=== PATIENT | female | born 1965 | race Caucasian/White ===

== ENCOUNTER 2019-11-07 13:15 | Emergency (ER) | payer MEDICARE, MEDICAID, SELFPAY ==
[2019-11-07 13:27] VITALS: BP 150/84; PULSE 84; RESP 18; TEMP 36.7; O2SAT 97; BMI 28.3
== END 2019-11-07 15:24 ==
LOC: ER 14:47
PROVIDERS: Emergency Provider Family Medicine; Family Provider Family Medicine; PCP Family Medicine
DX: Z53.21 Procedure and treatment not carried out due to patient leaving prior to being seen by health care provider (principal)
CPT/HCPCS: 99281; A9270

== ENCOUNTER 2020-05-25 13:39 | Outpatient (CLI) | payer MEDICARE, MEDICAID, SELFPAY ==
--- NOTE | 2020-05-25 13:49 | XRR_ITS ---
PROCEDURE INFORMATION: Exam: XR Lumbosacral Spine, 2 or 3 Views Exam date and time: 05/25/2020 2:21 PM Age: 55 years old Clinical indication: Low back pain; Prior surgery; Surgery type: L spine TECHNIQUE: Imaging protocol: XR of the lumbosacral spine, 2 or 3 views. COMPARISON: CT abdomen pelvis w con* [id number] 10/18/2016 3:42 PM FINDINGS: Vertebrae: Minimal curvature of the upper lumbar spine convex to the left. The lumbar vertebral bodies maintain height and sagittal alignment. The facets align normally. No acute fracture. There is multilevel disc degeneration, most prominently at L4-L5 and L5-S1. Soft tissues: No acute soft tissue abnormality. XR/XR lumbar spine 2-3V* [id number] IMPRESSION: Multilevel disc degeneration.
--- NOTE | 2020-05-25 13:49 | XRR_ITS ---
PROCEDURE INFORMATION: Exam: XR Bilateral Hips with Pelvis when Performed Exam date and time: 05/25/2020 2:21 PM Age: 55 years old Clinical indication: Hip pain; Bilateral; Prior surgery; Surgery type: L spine; Additional info: B/l hip pain TECHNIQUE: Imaging protocol: XR bilateral hips with pelvis when performed. Views: 2 views. COMPARISON: CT abdomen pelvis w con* [id number] 10/18/2016 3:42 PM FINDINGS: Bones/joints: No fracture. No dislocation. No hip joint space narrowing. The symphysis pubis is degenerated. The sacroiliac joints appear normal. Soft tissues: No acute soft tissue abnormality. XR/XR hip BI m 5V wo/w pel* [id number] IMPRESSION: No acute osseous abnormality.
== END 2020-05-25 13:40 | disposition home or self-care (01) ==
PROVIDERS: Family Provider Family Medicine; PCP Family Medicine; Visit Provider Family Medicine
DX: M54.5 Low back pain (principal); M25.551 Pain in right hip; M25.552 Pain in left hip; M51.36 Other intervertebral disc degeneration, lumbar region
CPT/HCPCS: 72100; 73523

== ENCOUNTER 2020-12-23 13:23 | Outpatient (CLI) | payer MEDICARE, MEDICAID, SELFPAY ==
--- NOTE | 2020-12-23 13:30 | CT_ITS ---
WS: [id number] CT ABDOMEN AND PELVIS WITH CONTRAST HISTORY: ABDOMINAL PAIN TECHNIQUE: Imaging performed of the abdomen and pelvis with IV contrast. Single phase imaging of the abdomen. Coronal and sagittal reformats are submitted. All CT scans at [facility] use at least one of these dose optimization techniques: automated exposure control; mA and/or kV adjustment per patient size (includes targeted exams where dose is matched to clinical indication); or iterativ e reconstruction. IV CONTRAST: Omnipaque 300; 95 mL IV. Oral contrast: Yes. DLP: 1080.37 mGycm COMPARISON: 10/18/2016 Lower thorax: Lung bases are clear. Heart is normal size. No hiatal hernia. Liver/biliary system: Moderately enlarged liver extends over length of 20 cm. Diffuse hepatic steatos is. No bile duct dilatation or mass. Gallbladder: Status post cholecystectomy. Common bile duct is mildly prominent but similar to 2017. Pancreas: Normal. Spleen: Normal. Adrenal glands: Normal RIGHT adrenal gland. Long-term stability well-circumscribed low-attenuation ma ss in the LEFT adrenal gland measures 2.7 x 2.1 cm. Right kidney: Normal. Left kidney: Nonobstructing calcification in the central pelvis. This is probably a vascular calcific ation. Otherwise negative kidney. Aorta: Mild atherosclerosis with no aneurysm. Lymphadenopathy: None. Free fluid: None. GI tract: Prior appendectomy. No GI tract obstruction. No mucosal thickening. There are a few scatter ed diverticula in the descending and sigmoid colon without diverticulitis. Abdominal wall: Fat-containing umbilical hernia. Pelvis: Prior hysterectomy. Normal urinary bladder. No free fluid or adenopathy. Normal size RIGHT ov kaleigh is identified. Bones: Moderate degenerative disc disease at L4-5. CT/CT abdomen pelvis w con* [id number] IMPRESSION: 1. No acute abdominal or pelvic abnormalities. 2. Prior appendectomy, cholecystectomy and hysterectomy. 3. A few scattered distal colon diverticula without diverticulitis. 4. No evidence for colitis. 5. Moderate hepatomegaly and hepatic steatosis. 6. Long-term stability LEFT adrenal adenoma.
[2020-12-23] MEDS: iohexol 300 mg/mL 50 mL Btl PO (14:12)
[2020-12-23] MEDS: iohexol 300 mg/mL 100 mL Btl IV (14:56)
== END 2020-12-23 13:24 | disposition home or self-care (01) ==
LOC: RADWPI 13:25
PROVIDERS: PCP Physician Assistant; Visit Provider Physician Assistant
DX: R10.9 Unspecified abdominal pain (principal); D35.02 Benign neoplasm of left adrenal gland; Q42.8 Congenital absence, atresia and stenosis of other parts of large intestine; Z90.49 Acquired absence of other specified parts of digestive tract; Z90.710 Acquired absence of both cervix and uterus; K57.30 Diverticulosis of large intestine without perforation or abscess without bleeding; R16.0 Hepatomegaly, not elsewhere classified; K76.0 Fatty (change of) liver, not elsewhere classified
CPT/HCPCS: 74177; Q9967

== ENCOUNTER 2021-08-02 13:13 | Outpatient (CLI) | payer MEDICARE, MEDICAID, SELFPAY ==
--- NOTE | 2021-08-02 13:22 | MR_ITS ---
WS: [id number] MRI LUMBAR SPINE NONCONTRAST HISTORY: LOW BACK PAIN WITH RADIATION COMPARISON: 05/18/2011 TECHNIQUE: Sagittal and axial multisequence imaging is submitted. 7 cervical and 12 thoracic vertebral bodies. There are 5 lumbar type vertebral bodies. S1 is lumbariz ed. This numbering pattern will be important if surgery is ever contemplated in this patient. Mild scoliosis lumbar spine. No acute fractures or marrow edema. Severe degenerative disc disease at L5-S1 with endplate osteophytes Conus terminates normally at L1. L1-L2: Normal. L2-L3: Moderate bilateral ligamentum flavum hypertrophy and facet hypertrophy. No significant stenosi s. L3-L4: Moderate ligamentum flavum and facet hypertrophy. Very slight encroachment into the thecal sac but no significant stenosis. L4-L5: Moderate ligamentum flavum hypertrophy with encroachment centrally into the thecal sac. Very s light subarticular recess narrowing. No significant stenosis. L5-S1: Moderate-sized RIGHT subarticular disc protrusion extends into the lateral recess. This disc d oes displace the nerve root posteriorly. There is mass effect upon the RIGHT lateral thecal sac. Channing tional moderate narrowing of the LEFT subarticular recess. There is encroachment upon the S1 nerve ro ots bilaterally. There is also a prior RIGHT laminectomy defect. Rudimentary S1-S2 disc. There is a central disc protrusion contacting the LEFT S2 nerve root. Liver is enlarged extending over length of 20 cm. MR/MR lumbar spine wo con* [id number] IMPRESSION: 1. Consular Officer survey of the entire spine demonstrates 7 cervical, 12 thoracic and 6 lumbar type vertebral bodies. The 6 lumbar type vertebral body will be describ ed as a lumbarized S1 segment. This numbering pattern will be important if surg elinor is contemplated in this patient. 2. Moderate-sized RIGHT subarticular disc protrusion at L5-S1 contacting the t hecal sac and displacing the RIGHT S1 nerve root. 3. Additional bilateral subarticular recess stenosis at L5-S1 contacting the n erve roots. Prior RIGHT hemilaminectomy at this level. 4. Small central disc protrusion at S1-S2 contacting the LEFT S2 nerve root. 5. Mild bilateral subarticular recess narrowing at L4-5.
== END 2021-08-02 13:14 | disposition home or self-care (01) ==
PROVIDERS: PCP Physician Assistant; Visit Provider Physician Assistant
DX: M51.27 Other intervertebral disc displacement, lumbosacral region (principal); M48.07 Spinal stenosis, lumbosacral region
CPT/HCPCS: 72148

== ENCOUNTER 2022-01-27 12:41 | Outpatient (CLI) | payer MEDICARE, MEDICAID, SELFPAY ==
--- NOTE | 2022-01-27 12:49 | XR_ITS ---
WS: [email or web address] SCREENING DEXA SCAN [facility] CLINICAL INFORMATION: POSTMENOPAUSAL COMPARISON: None. FINDINGS: The L1-L4 bone mineral density measures 1.009 g/cm2. This corresponds to a T score score of -1.4 and Z score of -0.5. Left femoral neck bone mineral density measures 0.687 g/cm2. This corresponds to a T score of -2.5 an d Z score of -1.8. Right femoral neck bone mineral density measures 0.609 g/cm2. This corresponds to a T score -3.2of an d Z score of -2.4. Mean femoral neck bone mineral density measures 0.648 g/cm2. This corresponds to a T score of -2.9 an d Z score of -2.1. XR/XR DEXA axial skeleton* [id number] IMPRESSION: Osteopenia lumbar spine. Osteoporosis femoral necks. Patient's FRAX calculated 10 year probability for major osteoporotic fracture i s 16.4 % and osteoporotic hip fracture is 7.6%.
--- NOTE | 2022-01-27 12:50 | CT_ITS ---
WS: [email or web address] LDCT LUNG CANCER SCREENING TECHNIQUE: Noncontrast CT of the chest with coronal and sagittal reformatted images. CLINICAL INFORMATION: NICOTINE DEPENDENCE, CIGARETTES COMPARISON: None. DLP: 78.57 mGy.cm DIvol: Mean CTDIvol: 1.60 (mGy) All CT scans at [facility] use at least one of these dose optimization techniques: automat ed exposure control; mA and/or kV adjustment per patient size (includes targeted exams where dose is matched to clinical indication); or iterative reconstruction. FINDINGS: Mild aortic calcification. Coronary calcification. No mediastinal or hilar lymphadenopathy. No axilla ry lymphadenopathy. Normal RIGHT adrenal gland. LEFT adrenal adenoma measuring 2.7 cm. Normal GE junction. Noncalcified pulmonary nodule RIGHT upper lobe measuring 8 mm. Slight atelectasis in the lingula. CT/CT lung screening [id number] IMPRESSION: Recommend 3 month follow-up CT for the 8 mm RIGHT upper lobe nodule . LUNG-RADS: 4A-Probably Suspicious FOLLOW UP: 3 Month LDCT
== END 2022-01-27 12:42 | disposition home or self-care (01) ==
PROVIDERS: PCP Physician Assistant; Visit Provider Physician Assistant
DX: Z78.0 Asymptomatic menopausal state (principal); Z12.2 Encounter for screening for malignant neoplasm of respiratory organs; F17.210 Nicotine dependence, cigarettes, uncomplicated
CPT/HCPCS: 71271; 77080

== ENCOUNTER → 2022-02-01 13:16 | Outpatient (BNVA) | payer MEDICARE, MEDICAID, SELFPAY | PROVIDERS: PCP Physician Assistant; Referring Provider Physician Assistant; Visit Provider Podiatrist Foot & Ankle Surgery | DX: M21.371 Foot drop, right foot (principal); M25.371 Other instability, right ankle; F17.210 Nicotine dependence, cigarettes, uncomplicated | CPT/HCPCS: 99213; 99214 ==

== ENCOUNTER → 2022-03-07 08:41 | Outpatient (BNVA) | payer MEDICARE, MEDICAID, SELFPAY | PROVIDERS: PCP Physician Assistant; Visit Provider Orthopaedic Surgery | DX: M54.17 Radiculopathy, lumbosacral region (principal) | CPT/HCPCS: 99213; 99214 ==

== ENCOUNTER 2022-04-18 07:49 | Outpatient (CLI) | payer MEDICARE, MEDICAID, SELFPAY ==
--- NOTE | 2022-04-18 08:00 | MR_ITS ---
WS: [email or web address] MRI LUMBAR SPINE NONCONTRAST HISTORY: pain and numbness COMPARISON: 08/02/2021 TECHNIQUE: Sagittal and axial multisequence imaging is submitted. 6 lumbar type vertebral bodies. As on the prior imaging study the sixth lumbar vertebral body will be labeled a lumbarized S1 segment. Osteophytes and disc disease contact and cause moderate cervical stenosis from C4-5 to C6-7. Mild inc rease in the lumbar lordosis. Very minimal straightening of the normal lumbar lordosis. No fracture or marrow edema. Mild disc spac e narrowing and desiccation at L5-S1 and at the rudimentary S1-S2 segment. Otherwise distal are preserved. Mild reactive marrow edema along the endplates of L5 and S1. Conus terminates normally at L1-2 disc level. L1-L2: Normal. L2-L3: Moderate annular disc bulge. Mild osteophytic ridging. Mild bilateral facet joint arthritis. N o stenosis. L3-L4: Mild annular disc bulge. Mild ligamentum flavum and facet arthritis. Mild encroachment into th e thecal sac. Mild central and bilateral subarticular recess encroachment and stenosis. L4-L5: Mild annular disc bulge with ligamentum flavum hypertrophy and facet arthritis. Trefoil encroa chment into the thecal sac resulting in mild central and bilateral subarticular recess encroachment. Similar to the prior study. L5-S1: Mild diffuse annular disc bulging. RIGHT hemilaminectomy defect. Again noted is the RIGHT suba rticular disc protrusion and/or osteophyte encroaching on the RIGHT lateral thecal sac and contacting the RIGHT traversing S1 nerve root. There is an additional smaller disc protrusion which is slightly extruded caudad to the disc level in the LEFT foramen contacting the LEFT traversing S1 nerve root. LEFT foraminal disc protrusion is new. The extent of stenosis is similar to the prior study due to de generative changes. S1 nerve root. S1-S2: Small central to LEFT paracentral disc protrusion with minimal contact on the S2 nerve root. S imilar to the prior study. MR/MR lumbar spine wo con* [id number] IMPRESSION: 1. As described on the prior MRI of 08/02/2021 there are 6 lumbar type vertebr al bodies. The 6 lumbar type vertebral body will be labeled lumbarized S1 segme nt. This numbering pattern will be important if surgery is contemplated. 2. Prior RIGHT hemilaminectomy defect at L5-S1. 3. RIGHT subarticular disc protrusion at L5-S1 contacts the traversing S1 nerv e root similar to the prior study. Additional proximal LEFT foraminal disc prot rusion with extrusion at L5-S1. Contacts the LEFT traversing S1 nerve root. Mor e prominent than on the prior study. 4. Mild central and bilateral subarticular recess stenosis at L3-4. 5. Mild central and bilateral subarticular recess encroachment at L4-5. 6. Small central to LEFT paracentral disc protrusion at S1-S2, unchanged.
== END 2022-04-18 07:50 | disposition home or self-care (01) ==
PROVIDERS: PCP Physician Assistant; Visit Provider Orthopaedic Surgery
DX: M54.9 Dorsalgia, unspecified (principal)
CPT/HCPCS: 72148

== ENCOUNTER → 2022-04-25 12:53 | Outpatient (BNVA) | payer MEDICARE, MEDICAID, SELFPAY | PROVIDERS: PCP Physician Assistant; Visit Provider Physician Assistant | DX: M48.062 Spinal stenosis, lumbar region with neurogenic claudication (principal); M51.17 Intervertebral disc disorders with radiculopathy, lumbosacral region; M96.1 Postlaminectomy syndrome, not elsewhere classified | CPT/HCPCS: 99213; 99214 ==

== ENCOUNTER → 2022-05-02 14:06 | Outpatient (BNVA) | payer MEDICARE, MEDICAID, SELFPAY | PROVIDERS: PCP Physician Assistant; Visit Provider Podiatrist Foot & Ankle Surgery | DX: M79.671 Pain in right foot (principal); M21.371 Foot drop, right foot; M25.371 Other instability, right ankle | CPT/HCPCS: 99214 ==

== ENCOUNTER → 2022-06-08 09:13 | Outpatient (BNVA) | payer MEDICARE, MEDICAID, SELFPAY | PROVIDERS: PCP Physician Assistant; Visit Provider Anesthesiology Pain Medicine | DX: M79.604 Pain in right leg (principal); M79.605 Pain in left leg; F17.210 Nicotine dependence, cigarettes, uncomplicated; M48.062 Spinal stenosis, lumbar region with neurogenic claudication; M54.17 Radiculopathy, lumbosacral region; M96.1 Postlaminectomy syndrome, not elsewhere classified; M51.37 Other intervertebral disc degeneration, lumbosacral region; M47.816 Spondylosis without myelopathy or radiculopathy, lumbar region | CPT/HCPCS: 99205 ==

== ENCOUNTER → 2022-06-27 12:42 | Outpatient (BNVA) | payer MEDICARE, MEDICAID, SELFPAY | PROVIDERS: PCP Physician Assistant; Visit Provider Anesthesiology Pain Medicine | DX: E11.9 Type 2 diabetes mellitus without complications (principal); M48.062 Spinal stenosis, lumbar region with neurogenic claudication; F17.210 Nicotine dependence, cigarettes, uncomplicated; Z79.84 Long term (current) use of oral hypoglycemic drugs; Z01.812 Encounter for preprocedural laboratory examination; M54.16 Radiculopathy, lumbar region | CPT/HCPCS: 36416; 62323; 82962; J1100; J3490 ==

== ENCOUNTER 2022-07-07 09:28 | Outpatient (CLI) | payer MEDICARE, MEDICAID, SELFPAY ==
--- NOTE | 2022-07-07 09:34 | CT_ITS ---
WS: [email or web address] CT CHEST WITHOUT INTRAVENOUS CONTRAST HISTORY: LUNG NODULE TECHNIQUE: Contiguous 5 mm axial imaging performed on the thorax. Coronal and sagittal reformats are submitted. All CT scans at [facility] use at least one of these dose optimization techniques: automated exposure control; mA and/or kV adjustment per patient size (includes targeted exams where dose is matched to clinical indication); or iterative reconstruction. CONTRAST: None DLP: 702.93 mGy.cm COMPARISON: Lung CT screening 01/27/2022 Lungs and central airway: Mild pulmonary hyperinflation. Previously described noncalcified slightly l obulated nodule in the RIGHT upper lobe is unchanged in size measuring 8 mm. No new mass or pulmonary nodule. Very minimal area of soft tissue spiculation RIGHT lower lobe, image 42 of series 4 is uncha nged also. Pleura: Normal. No pleural effusion. Heart and pericardium: Normal size heart with no pericardial effusion. Mediastinum and bibi: No mediastinum or hilar adenopathy. Vessels: Mild atherosclerosis aorta. No aneurysm. Normal size pulmonary artery. Moderate coronary art elinor calcification. Chest wall and lower neck: No soft tissue masses. Upper abdomen: Prior cholecystectomy. Hepatic steatosis. The liver is enlarged. Nonobstructing bilate ral renal calculi. LEFT adrenal adenoma measures 3.3 x 2.4 cm. Osseous structures: No destructive process. CT/CT chest [facility] [id number] IMPRESSION: 1. Stable 8 mm noncalcified RIGHT upper lobe nodule since 01/27/2022. Recommend [address] follow-up. Serial follow-up for a total of 2 years will be necessary to document long-term stability. 2. Very small area of spiculation in the RIGHT lower lobe can also be reevalua sg in 6 months. 3. Mild atherosclerosis aorta and moderate coronary artery atherosclerosis. 4. Prior cholecystectomy. 5. Hepatic steatosis and hepatomegaly. 6. LEFT adrenal adenoma.
== END 2022-07-07 09:29 | disposition home or self-care (01) ==
LOC: RAD 09:29
PROVIDERS: PCP Physician Assistant; Visit Provider Physician Assistant
DX: R91.1 Solitary pulmonary nodule (principal); D35.02 Benign neoplasm of left adrenal gland; K76.0 Fatty (change of) liver, not elsewhere classified; R16.0 Hepatomegaly, not elsewhere classified; Z90.49 Acquired absence of other specified parts of digestive tract; I70.0 Atherosclerosis of aorta; I25.10 Atherosclerotic heart disease of native coronary artery without angina pectoris
CPT/HCPCS: 71250

== ENCOUNTER → 2022-07-13 09:30 | Outpatient (BNVA) | payer MEDICARE, MEDICAID, SELFPAY | PROVIDERS: PCP Physician Assistant; Visit Provider Anesthesiology Pain Medicine | DX: M48.062 Spinal stenosis, lumbar region with neurogenic claudication (principal); M54.17 Radiculopathy, lumbosacral region; M96.1 Postlaminectomy syndrome, not elsewhere classified; M51.37 Other intervertebral disc degeneration, lumbosacral region; M47.816 Spondylosis without myelopathy or radiculopathy, lumbar region; M79.604 Pain in right leg; M79.605 Pain in left leg; F17.210 Nicotine dependence, cigarettes, uncomplicated | CPT/HCPCS: 99213 ==

== ENCOUNTER 2022-12-12 14:31 | Outpatient (CLI) | payer MEDICARE, MEDICAID, SELFPAY ==
--- NOTE | 2022-12-12 14:35 | CT_ITS ---
WS: [id number] CT CHEST, ABDOMEN AND PELVIS WITH CONTRAST HISTORY: LUNG nodule, abdominal pain. TECHNIQUE: Contiguous 5 mm axial imaging performed through the chest, abdomen and pelvis with IV cont rast, oral contrast has been provided. Coronal and sagittal reformats chest. Coronal and sagittal ref ormats through the abdomen and pelvis. All CT scans at [facility] use at least one of these d ose optimization techniques: automated exposure control; mA and/or kV adjustment per patient size (in cludes targeted exams where dose is matched to clinical indication); or iterative reconstruction. CONTRAST: Omnipaque 350; 95 mL IV. DLP: 988.68 mGy.cm COMPARISON: Chest CT 07/07/2022, CT abdomen and pelvis 12/23/[address]: Moderate pulmonary hyperexpansion. 8 mm slightly lobulated noncalcified nodule in the RIGHT upper lobe is unchanged. There is an additional 3 mm nodule RIGHT lower lobe which is unchanged. No mediastinal or hilar adenopathy. Mild atherosclerosis aorta. Pulmonary arteries are normally opacifie d centrally. No hiatal hernia. Normal size heart. Abdomen CT: Marked low attenuation throughout the liver from hepatic steatosis. Liver is enlarged wit h no mass identified. No bile duct dilatation. Normal portal vein. Spleen measures 15.0 cm in length. Very similar spleen as compared to 12/23/2020. Although elongated the transverse diameter is small. N ormal pancreas. Prior cholecystectomy. The common bile duct is prominent which is probably related to the cholecystectomy. Well-circumscribed LEFT adrenal mass measures 3.0 x 2.4 cm and noted to be an a denoma on a prior study. No RIGHT adrenal mass. Kidneys are normal size with small extrarenal pelves. No obstruction. Scattered plaque within the aorta. Small amount calcification throughout the mesente lai arteries. No occlusions. No oral contrast was provided for this examination. The stomach is not distended. No small bowel dist ention. No wall thickening. No colon obstruction. There are numerous diverticuli beginning in the jean carlos cending and sigmoid colon. There is mild inflammation with increased enhancement in the descending co lissette at the level of the iliac crest. The appendix is not definitely identified. No abscess or adenopa thy. Pelvic CT: Prior hysterectomy. No free fluid in the pelvis. Moderate degenerative disc disease with vacuum disc phenomenon at L4-5. CT/CT chest abdpel w/*[id number] IMPRESSION: 1. Short segment acute diverticulitis in the descending colon. Recommend follo w-up colonoscopy after acute diverticulitis resolves to exclude underlying neop lasm. 2. Numerous distal colon diverticula. 3. Prior cholecystectomy. 4. Marked hepatic steatosis with hepatomegaly. 5. No change in the 8 mm noncalcified nodule RIGHT upper lobe or the additiona l 3 mm spiculated nodule RIGHT lower lobe. Recommend additional [address] follow-up to document long-term stability. 6. Stable LEFT adrenal adenoma.
[2022-12-12] MEDS: iohexol 350 mg/mL 500 mL Btl (per mL) IV (15:14)
== END 2022-12-12 14:32 | disposition home or self-care (01) ==
LOC: RAD 14:33
PROVIDERS: PCP Physician Assistant; Visit Provider Physician Assistant
DX: R10.9 Unspecified abdominal pain (principal); K57.30 Diverticulosis of large intestine without perforation or abscess without bleeding; K76.0 Fatty (change of) liver, not elsewhere classified
CPT/HCPCS: 71260; 74177; Q9967

== ENCOUNTER → 2023-03-20 13:36 | Outpatient (BNVA) | payer MEDICARE, MEDICAID, SELFPAY | PROVIDERS: PCP Physician Assistant; Referring Provider Physician Assistant; Visit Provider Physician Assistant | DX: M48.062 Spinal stenosis, lumbar region with neurogenic claudication (principal) | CPT/HCPCS: 99213 ==

== ENCOUNTER → 2023-03-27 09:21 | Outpatient (BNVA) | payer MEDICARE, MEDICAID, SELFPAY | PROVIDERS: PCP Physician Assistant; Visit Provider Anesthesiology Pain Medicine | DX: M48.062 Spinal stenosis, lumbar region with neurogenic claudication (principal); M47.816 Spondylosis without myelopathy or radiculopathy, lumbar region; M54.17 Radiculopathy, lumbosacral region; M51.37 Other intervertebral disc degeneration, lumbosacral region; M96.1 Postlaminectomy syndrome, not elsewhere classified | CPT/HCPCS: 99214 ==

== ENCOUNTER → 2023-04-24 12:47 | Outpatient (BNVA) | payer MEDICARE, MEDICAID, SELFPAY | PROVIDERS: PCP Physician Assistant; Visit Provider Anesthesiology Pain Medicine | DX: M54.16 Radiculopathy, lumbar region (principal); M48.062 Spinal stenosis, lumbar region with neurogenic claudication | CPT/HCPCS: 62323; J1040 ==

== ENCOUNTER → 2023-05-07 10:18 | Outpatient (BNVA) | payer MEDICARE, MEDICAID, SELFPAY | PROVIDERS: PCP Physician Assistant; Visit Provider Anesthesiology Pain Medicine | DX: M48.062 Spinal stenosis, lumbar region with neurogenic claudication (principal); M54.17 Radiculopathy, lumbosacral region; M96.1 Postlaminectomy syndrome, not elsewhere classified; M51.37 Other intervertebral disc degeneration, lumbosacral region; M47.816 Spondylosis without myelopathy or radiculopathy, lumbar region | CPT/HCPCS: 99215 ==

== ENCOUNTER 2023-05-31 14:37 | Outpatient (CLI) | payer MEDICARE, MEDICAID, SELFPAY ==
--- NOTE | 2023-05-31 14:43 | MM_ITS ---
WS: [email or web address] BILATERAL SCREENING DIGITAL TOMOSYNTHESIS MAMMOGRAM WITH CAD HISTORY: SCREENING COMPARISON: None available. Bilateral CC and MLO views with tomosynthesis and synthetic mammography submitted. Computer aided det ection analyzed. Breast composition: There are scattered areas of fibroglandular density. No suspicious masses, microc alcifications or architectural distortion. Benign punctate calcification upper outer quadrant left br east. IMPRESSION: MM/[place] [id number] BI-RADS: 2-Benign FOLLOW UP: 1 Year Follow-up
== END 2023-05-31 14:38 | disposition home or self-care (01) ==
LOC: RAD 14:41 → MOBLMAM 14:42
PROVIDERS: PCP Physician Assistant; Visit Provider Physician Assistant
DX: Z12.31 Encounter for screening mammogram for malignant neoplasm of breast (principal)
CPT/HCPCS: 77063; 77067

== ENCOUNTER → 2023-06-07 09:08 | Outpatient (BNVA) | payer MEDICARE, MEDICAID, SELFPAY | PROVIDERS: PCP Physician Assistant; Visit Provider Anesthesiology Pain Medicine | DX: M48.062 Spinal stenosis, lumbar region with neurogenic claudication (principal); M54.17 Radiculopathy, lumbosacral region; M96.1 Postlaminectomy syndrome, not elsewhere classified; M51.37 Other intervertebral disc degeneration, lumbosacral region; M47.816 Spondylosis without myelopathy or radiculopathy, lumbar region | CPT/HCPCS: 99213 ==

== ENCOUNTER 2023-06-28 08:51 | Outpatient (CLI) | payer MEDICARE, MEDICAID, SELFPAY ==
--- NOTE | 2023-06-28 09:05 | MR_ITS ---
WS: [email or web address] MRI LUMBAR SPINE NONCONTRAST TECHNIQUE: Sagittal T1, T2 and STIR imaging. Axial T1 and T2 imaging. CLINICAL INFORMATION: SPINAL STENOSIS, LUMBAR REGION W/NEUROGENIC COMPARISON: MRI 04/18/2022 FINDINGS: Counting performed from the craniocervical junction. 6 lumbar-type vertebral bodies. The sixth lumbar vertebral body considered lumbarized S1 segment in keeping with the prior numbering convention. Mild lumbar curve. No acute compression. Disc narrowing worse at L5-S1 with prior hemilaminectomy. No acute compression fractures. Mild central canal stenosis on the senior engineering associate imaging at C3-C6. L1-L2: Mild disc bulging. Spinal canal and foramen are patent. L2-L3: Mild annular bulging. Slight effacement of the ventral thecal sac. Narrowing of the RIGHT suba rticular recess. Mild facet arthropathy. Spinal canal and foramen are patent. L3-L4: Mild central canal stenosis with mild annular bulging. Slight narrowing of the RIGHT subarticu lar recess. Moderate facet arthropathy. Mild RIGHT foraminal narrowing. L4-L5: Mild annular bulging. Mild central canal stenosis. Narrowing of the subarticular recess bilate rally. Moderate facet arthropathy. L5-S1:RIGHT subarticular protrusion impinges the traversing RIGHT S1 nerve root in the subarticular r ecess. RIGHT hemilaminectomy. Mild LEFT foraminal narrowing. RIGHT foramen is patent. S1-S2: Mild disc bulging with tiny shallow central protrusion. Slight effacement of the ventral theca l sac. Foramen are patent. Mild facet arthropathy. Visualized pelvic bony structures: Normal. Paravertebral soft tissues: Normal. IMPRESSION:Counting performed from the craniocervical junction. 6 lumbar-type vertebral bodies. The s ixth lumbar vertebral body considered lumbarized S1 segment in keeping with the prior numbering conve ntion. 1. No significant changes since 04/18/2022. 2. RIGHT hemilaminectomy at L5-S1 is unchanged with a RIGHT subarticular protrusion. This impinges t he traversing RIGHT S1 nerve root in the subarticular recess unchanged. 3. Small LEFT foraminal protrusion L5-S1 with mild LEFT foraminal narrowing. 4. Mild central canal stenosis L3-L4 and L4-L5 due to mild annular bulging with facet arthropathy an d ligamentum flavum hypertrophy similar to previous.
== END 2023-06-28 08:52 | disposition home or self-care (01) ==
PROVIDERS: PCP Physician Assistant; Visit Provider Anesthesiology Pain Medicine
DX: M48.062 Spinal stenosis, lumbar region with neurogenic claudication (principal); M47.816 Spondylosis without myelopathy or radiculopathy, lumbar region; M51.16 Intervertebral disc disorders with radiculopathy, lumbar region
CPT/HCPCS: 72148

== ENCOUNTER → 2023-07-12 08:52 | Outpatient (BNVA) | payer MEDICARE, MEDICAID, SELFPAY | PROVIDERS: PCP Physician Assistant; Visit Provider Anesthesiology Pain Medicine | DX: M54.16 Radiculopathy, lumbar region (principal); M48.062 Spinal stenosis, lumbar region with neurogenic claudication; M96.1 Postlaminectomy syndrome, not elsewhere classified; M51.37 Other intervertebral disc degeneration, lumbosacral region; M47.816 Spondylosis without myelopathy or radiculopathy, lumbar region | CPT/HCPCS: 99214 ==

== ENCOUNTER 2023-08-22 09:32 | Outpatient (CLI) | payer MEDICARE, MEDICAID, SELFPAY ==
--- NOTE | 2023-08-22 09:37 | CT_ITS ---
WS: [email or web address] CT chest wo con [id number] HISTORY: LUNG NODULE TECHNIQUE: Axial imaging performed through the thorax. Coronal and sagittal reformats are submitted. All CT scans at [facility] use at least one of these dose optimization techniques: automated exposure control; mA and/or kV adjustment per patient size (includes targeted exams where dose is mat ched to clinical indication); or iterative reconstruction. CONTRAST: None DLP: 386.71 mGy.cm COMPARISON: 01/27/2022, 12/12/2022 Lungs and central airway: Hyperinflated lungs with emphysema. New subsolid opacification measuring 13 mm in the posterior RIGHT upper lobe. Previously described lobulated solid nodule measuring 8 mm in the central RIGHT upper lobe is stable. Small spiculation measuring 5 mm in the RIGHT lower lobe is s table. No additional mass or pneumonia. Pleura: Normal. No pleural effusion. Heart and pericardium: Normal size heart with no pericardial effusion. Mediastinum and bibi: No mediastinum or hilar adenopathy. Vessels: Normal size aorta with mild atherosclerosis. Normal pulmonary artery. Chest wall and lower neck: No soft tissue masses. Upper abdomen: Diffuse hepatic steatosis. Stable LEFT adrenal adenoma 2.8 cm. Nonobstructing calcific ations upper pole of each kidney. Osseous structures: No destructive process. IMPRESSION: 1. New subsolid opacification posterior RIGHT upper lobe measures 13 mm. 2. Stable solid lobulated 8 mm nodule RIGHT upper lobe and spiculated 5 mm nodule RIGHT lower lobe. 3. Diffuse hepatic steatosis and stable LEFT adrenal adenoma. CT/CT chest wo con [id number] Recommendation: Follow-up chest CT, noncontrast in 3 months.
== END 2023-08-22 09:33 | disposition home or self-care (01) ==
LOC: RAD 09:32
PROVIDERS: PCP Physician Assistant; Visit Provider Physician Assistant
DX: R91.1 Solitary pulmonary nodule (principal); K76.0 Fatty (change of) liver, not elsewhere classified; D35.02 Benign neoplasm of left adrenal gland
CPT/HCPCS: 71250

== ENCOUNTER 2023-12-14 15:48 | Outpatient (CLI) | payer MEDICARE, MEDICAID, SELFPAY ==
--- NOTE | 2023-12-14 16:01 | CT_ITS ---
WS: [email or web address] CT chest wo con [id number] HISTORY: LUNG NODULES TECHNIQUE: Axial imaging performed through the thorax. Coronal and sagittal reformats are submitted. All CT scans at [facility] use at least one of these dose optimization techniques: automated exposure control; mA and/or kV adjustment per patient size (includes targeted exams where dose is mat ched to clinical indication); or iterative reconstruction. CONTRAST: None DLP: 397.01 mGy.cm COMPARISON: 08/22/2023, 12/12/2022 and 01/27/2022 Lungs and central airway: Subsolid opacification described in the posterior RIGHT upper lobe has near ly completely resolved. There is very minimal remaining nodular reticulation. The additional lobulate d 8.5 mm nodule in the central RIGHT upper lobe stable. Unchanged since 01/27/2022. Additional spicula sg 5 mm nodule in the RIGHT lower lobe is reidentified without change since 01/27/2022. No new mass o r nodular opacification. Chronic emphysema. Pleura: Normal. No pleural effusion. Heart and pericardium: Normal size heart with no pericardial effusion. Mediastinum and bibi: No mediastinum or hilar adenopathy. Vessels: Mild atherosclerosis aorta. No aneurysm. Normal size pulmonary artery. Chest wall and lower neck: No soft tissue masses. Upper abdomen: Marked hepatic steatosis. The entire liver is not included. Prior cholecystectomy. Bin dentified is some calcification upper pole LEFT kidney. Osseous structures: Increase in thoracic kyphosis. IMPRESSION: 1. Near complete resolution of the subsolid opacification in the RIGHT upper lobe since 08/22/2023. 2. Stable additional nodules in the RIGHT upper lobe and RIGHT lower lobe since 01/27/2022. 3. No mediastinal or hilar adenopathy. 4. Chronic emphysema. 5. Return to CT lung screening.
== END 2023-12-14 15:49 | disposition home or self-care (01) ==
LOC: RAD 15:50
PROVIDERS: PCP Physician Assistant; Visit Provider Physician Assistant
DX: R91.1 Solitary pulmonary nodule (principal)
CPT/HCPCS: 71250

== ENCOUNTER 2024-03-11 07:51 | Outpatient (CLI) | payer MEDICARE, MEDICAID, SELFPAY ==
[2024-03-11 08:07] VITALS: BMI 26.7
--- NOTE | 2024-03-11 08:07 | NMCV_ITS ---
NM lyndsey perf SPECT r/s* [id number] Lorna Urias Age: 58 Gender: F : 1965 Exam Date: 03/11/2024 08:45 Ordering Phys: Vivian Granado Technologist: JESSICA Sheriff Exam Location: [facility] Indications: CHEST PAIN STRESS TEST Please see separate stress test report in [facility] for full findings IMAGE PROTOCOL Rest/Stress 1 Lexiscan Day Radiopharmaceutical Dose (mCi) Administration Site Administered by Rest: Tc-99m 10.8 IV JESSICA Killian Sestamibi Stress:Tc-99m 32.7 IV JESSICA Killian Sestamibi Rest: 11-Mar-2024 60 Discovery 630 Stress: 11-Mar-2024 30 Discovery 630 0.4mg Lexiscan. Images obtained in supine and prone position. SPECT RESULTS Technical Quality: Excellent Raw Data Analysis: Normal Image Corrections: No attenuation or motion correction applied Summed Stress Score: 1 Summed Rest Score: 5 Summed Difference Score: 0 PERFUSION FINDINGS SPECT images demonstrate homogeneous tracer distribution throughout the myocardium. FUNCTIONAL RESULTS (calculated via Gated SPECT) Stress Image LV EF (%): 74 Stress EDV (mL):68 TID: 0.93 Stress ESV (mL):18 FUNCTIONAL FINDINGS: There is normal left ventricular systolic function. IMPRESSIONS 1. Normal myocardial perfusion imaging with no evidence of ischemia 2. LV systolic function is normal Ryder Chang MD (Electronically Signed) Final Date: 14 Mar 2024 08:45 S
--- NOTE | 2024-03-11 08:07 | ECG_ITS ---
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 Interpretive Statements NAME OF STUDY: LEXISCAN SESTAMIBI STRESS TEST INDICATION: [CP on Exertion] Procedure: At the baseline, the blood pressure was 128/76 mmHg with a heart rate of 71 bpm. The electrocardiogram showed normal sinus rhythm, normal axis with normal ST and T's. The Lexiscan was infused over a period of 20 seconds. A total of 0.4 mg of Lexiscan was infused. The stress phase was continued for a total of 5 minutes. Heart rate was at the end of stress phase was 96 bpm and a blood pressure of 154/91 mmHg. The EKG at the peak infusion revealed normal sinus rhythm with no significant ST-T wave changes. Sestamibi was injected 20 seconds after the Lexiscan infusion. Blood pressure at the end of recovery phase was 139/74 mmHg with a heart rate of 86 bpm. Conclusion 1. Normal EKG response to Lexiscan infusion 2. No Lexiscan induced chest pain or cardiac arrhythmia. 3. Normal blood pressure and heart rate response. 4. Sestamibi/sestamibi perfusion scan pending; see separate report. Electronically Signed On 03-23-2024 21:45:01 CDT by Ryder Chang M.D. [id number]
[2024-03-11] MEDS: regadenoson 0.4 Mg/5 ml Syringe 0.400000000000000022 MG IVP (09:37)
[2024-03-11 09:44] VITALS: BP 139/74; PULSE 85
== END 2024-03-11 07:52 | disposition home or self-care (01) ==
PROVIDERS: PCP Physician Assistant; Visit Provider Physician Assistant
DX: R07.89 Other chest pain (principal); R06.02 Shortness of breath
CPT/HCPCS: 36415; 78452; 93017; 96374; A9500; J2785

== ENCOUNTER 2024-08-05 12:38 | Emergency (ER) | payer MEDICARE, MEDICAID, SELFPAY ==
--- NOTE | 2024-08-05 12:39 | ECG_ITS ---
[facility] Date: 2024-08-05 Pat Name: Lorna Urias Department: Room: Gender: Female Spare Hand: : 1965 Requested By: Bebe Lema Order Number: [id number] Reading MD: KALPESH VILLALOBOS Measurements Intervals [place] Rate: 91 P: 69 [place]: 135 QRS: 62 QRSD: 85 T: 70 QT: 353 QTc: 434 Interpretive Statements SINUS RHYTHM MINIMAL ST DEPRESSION [0.025+ mV ST DEPRESSION] Compared to ECG 10/02/2018 18:46:46 ST (T wave) deviation now present Electronically Signed On 08-05-2024 20:56:49 CDT by KALPESH VILLALOBOS [id number]
--- NOTE | 2024-08-05 12:41 | XRR_ITS ---
PROCEDURE INFORMATION: Exam: XR Chest Exam date and time: 08/05/2024 1:08 PM Age: 59 years old Clinical indication: Pain; Angina pectoris; Additional info: Chest pain TECHNIQUE: Imaging protocol: Radiologic exam of the chest. Views: 1 view. COMPARISON: CR XR chest 2V* [id number] 02/26/2024 12:26 PM FINDINGS: Lungs: Left lower lung zone linear atelectasis versus scarring. No consolidation. Pleural spaces: Unremarkable. No pleural effusion. No pneumothorax. Heart/Mediastinum: Unremarkable. No cardiomegaly. Bones/joints: Unremarkable. XR/XR chest 1V portable [id number] IMPRESSION: No acute findings.
[2024-08-05 12:43] VITALS: BP 157/95; PULSE 95; RESP 16; TEMP 36.5; O2SAT 96; BMI 28.3
[2024-08-05 13:19] VITALS: BP 112/93; PULSE 95; O2SAT 97
[2024-08-05 13:19] LABS: Basophils # 0.1 10^3/uL (0.0-0.1); Basophils % 0.8 %; Eosinophils # 0.5 10^3/uL (0.0-0.8); Eosinophils % 4.8 %; Hematocrit 46.8 % (36-47); Lymphocytes # 2.6 10^3/uL (0.8-4.8); Lymphocytes % 23.8 %; Mean Corpuscular HGB Conc 34.4 g/dL (30-55); Mean Corpuscular Hemoglobin 30.5 pg (27-33); Mean Corpuscular Volume 88.6 fl (85-98); Mean Platelet Volume 8.7 fL (7.4-10.4); Monocytes # 0.9 10^3/uL (0.2-0.9); Monocytes % 8.6 %; Neutrophils # 6.74 10^3/uL (1.8-7.7); Neutrophils % 61.5 %; Nucleated Red Blood Cells % 0 %; Platelet Count 313 10^3/cmm (157-399); Red Blood Count 5.28 10^6/uL (3.85-5.65); Red Cell Distribution Width 12.5 % (12.1-15.1); White Blood Count 10.96 10^3/uL (3.29-11.43)
--- NOTE | 2024-08-05 13:25 | ED_ITS ---
HPI - Chest Pain 2 General: Chief Complaint: Chest Pain Stated Complaint: cp Time Seen by Provider: 08/05/24 13:12 History of Present Illness: 59-year-old female with history of COPD and tobacco dependence and hypertension who presents to the emergency room from with chest discomfort. She describes a burning pain that starts in the center of her chest and goes bilaterally. This been going on for some time now but worsening today. She been following with her doctor and they have a planned CT at some point but has not been done yet. No nausea or vomiting. She has baseline cough associated with her COPD and smoking. She says she has some pain in her legs but no swelling. She associates this with neuropathy Related Data Home Medications Medication Instructions Recorded Confirmed acetaminophen 500 mg tablet 500 mg PO Q6H PRN 06/08/22 07/12/23 (Tylenol Extra Strength) metformin 1,000 mg tablet 1,000 mg PO DAILY 06/08/22 07/12/23 rosuvastatin 20 mg tablet 20 mg PO DAILY 06/08/22 07/12/23 sitagliptin phosphate 100 mg 100 mg PO DAILY 03/20/23 07/12/23 tablet (Januvia) Previous Rx's Medication Instructions Recorded lisinopril 5 mg tablet 5 mg PO DAILY #30 tabs 07/26/20 joseph balance brace or equivalent #1 ea 05/02/22 with orthopedic shoes gabapentin 300 mg capsule 300 mg PO TID pain #90 caps 07/13/22 tramadol 50 mg tablet 50 mg PO BID PRN pain #45 tabs 05/07/23 topiramate 50 mg tablet 50 mg PO BID pain 30 days #60 tabs 07/12/23 diclofenac sodium 50 mg 50 mg PO BID PRN pain #14 tabs 08/05/24 tablet,delayed release hydrocodone 5 mg-acetaminophen 325 1 tab PO Q8H PRN pain #14 tabs 08/05/24 mg tablet ondansetron 4 mg disintegrating 4 mg PO Q8H PRN nausea and 08/05/24 tablet vomiting #10 tabs polyethylene glycol 3350 17 17 g PO DAILY #510 grams 08/05/24 gram/dose oral powder (Miralax) prednisone 20 mg tablet 60 mg (3 x 20 mg) PO DAILY #20 tabs 08/05/24 Allergies Allergy/AdvReac Type Severity Reaction Status Date / Time No Known Allergies Allergy Verified 07/12/23 09:36 Review of Systems 2 Narrative: Constitutional symptoms: Negative except as documented in HPI. Skin symptoms: Negative except as documented in HPI. Eye symptoms: Negative except as documented in HPI. ENMT symptoms: Negative except as documented in HPI. Respiratory symptoms: Negative except as documented in HPI. Cardiovascular symptoms: Negative except as documented in HPI. Gastrointestinal symptoms: Negative except as documented in HPI. Genitourinary symptoms: Negative except as documented in HPI. Musculoskeletal symptoms: Negative except as documented in HPI. Neurologic symptoms: Negative except as documented in HPI. Psychiatric symptoms: Negative except as documented in HPI. Endocrine symptoms: Negative except as documented in HPI. PFSH ED 2 PFSH: Medical History Diabetes GERD (gastroesophageal reflux disease) Hyperlipidemia Social History Smoking and tobacco/nicotine status: current every day tobacco/nicotine user cigarettes Packs smoked per day: 0.5 Alcohol intake: never Substance/Drug Use: never Physical Exam 2 Narrative: EXAM NARRATIVE: General: Alert, no acute distress. Skin: Warm, dry. Head: Normocephalic, atraumatic. Neck: Supple, trachea midline. Eye: Extraocular movements are intact. Ears, nose, mouth and throat: mucosa moist. Cardiovascular: Regular, Normal peripheral perfusion. Respiratory: Lungs are clear to auscultation, respirations are non-labored, breath sounds are equal, Symmetrical chest wall expansion. Gastrointestinal: Soft, Nontender, Non distended Musculoskeletal: Normal ROM, no deformity. Neurological: Alert and oriented, No focal neurological deficit observed. Psychiatric: Cooperative, appropriate mood & affect. Course 2 Vital Signs: Vital signs: Vital Signs Temperature 97.7 F 08/05/24 12:43 Pulse Rate 85 08/05/24 16:10 Respiratory Rate 16 08/05/24 12:43 Blood Pressure 136/89 08/05/24 16:10 Pulse Oximetry 98 08/05/24 16:10 Oxygen Delivery Me thod Room Air 08/05/24 16:10 MDM - Chest Pain Medical Decision Making Differential diagnosis for patient with chest pain includes but is not limited to and based on the above HPI, review of systems and physical exam: Pneumonia. unstable angina. angina. Acute coronary syndrome / DC. Pulmonary embolism. Costochondritis / musculoskeletal. Pleurisy. Pericarditis. Esophageal spasm. Pancreatis. Cholecystitis. Orders placed to evaluate differential diagnosis based on the above differential, HPI and physical exam EKG: Time 1239. Rate 91. Normal sinus rhythm, No ST-T changes, no ectopy, normal CA & QRS intervals, This was reviewed and interpreted by myself the ER physician at 1245 Repeat EKG: Time 1434. Rate 82. Normal sinus rhythm, No ST-T changes, no ectopy, normal CA & QRS intervals, This was reviewed and interpreted by myself the ER physician at 1436. No significant change from EKG performed 2 hours earlier in the emergency room. Chest x-ray: No acute process. No infiltrate. No pneumothorax. This was reviewed and interpreted by myself the ER physician. CT of the chest with PE protocol. No PE. Stable pulmonary nodules with recommended yearly follow-up. This was reviewed and interpreted by myself the emergency room physician. I also reviewed the radiology report. Lab Review: Laboratory results were reviewed and interpreted by myself the emergency room physician. No leukocytosis. No anemia. No renal failure. I reviewed the patient's medical record. Reexamination: Patient remained stable. No increased work of breathing. No altered mental status. No focal motor deficits. Assessment and plan: Noncardiac chest pain COPD Pulmonary nodules ?Toradol and Solu-Medrol in the emergency room - Discharged home - Discussed findings and plan with patient. Answered any questions. - All laboratory values were reviewed and interpreted personally by myself, the ER physician - All imaging was reviewed and interpreted personally by myself, the ER physician. - Evaluation and treatment of this problem were appropriate in the emergency setting Lab Data 08/05/24 13:03 08/05/24 13:03 Radiology Impressions Chest X-Ray 08/05/24 12:41 IMPRESSION: No acute findings. Chest CTA 08/05/24 13:39 IMPRESSION: 1. No evidence of pulmonary emboli. 2. No acute findings in the chest. 3. Stable pulmonary nodules as detailed above. Recommend continued annual CT lung screening. 4. Similar moderate emphysema. 5. Multivessel coronary artery calcifications. COMMENTS: The presence of pulmonary emphysema on CT is an independent risk factor for lung cancer. In the absence of a history or active diagnosis of lung cancer, it is recommended that this patient with emphysema be evaluated for enrollment in a low dose CT lung cancer screening program. Laboratory Results WBC 10.96 10^3/uL (3.29-11.43) 08/05/24 13:03 RBC 5.28 10^6/uL (3.85-5.65) 08/05/24 13:03 Hgb 16.10 g/dL (11.27-16.99) 08/05/24 13:03 Hct 46.8 % (36-47) 08/05/24 13:03 MCV 88.6 fl (85-98) 08/05/24 13:03 MCH 30.5 pg (27-33) 08/05/24 13:03 MCHC 34.4 g/dL (30-55) 08/05/24 13:03 RDW 12.5 % (12.1-15.1) 08/05/24 13:03 Plt Count 313 10^3/cmm (157-399) 08/05/24 13:03 MPV 8.7 fL (7.4-10.4) 08/05/24 13:03 Neut % (Auto) 61.5 % 08/05/24 13:03 Lymph % (Auto) 23.8 % 08/05/24 13:03 [place] % (Auto) 8.6 % 08/05/24 13:03 Eos % (Auto) 4.8 % 08/05/24 13:03 Baso % (Auto) 0.8 % 08/05/24 13:03 Neut # (Auto) 6.74 10^3/uL (1.8-7.7) 08/05/24 13:03 Lymph # (Auto) 2.6 10^3/uL (0.8-4.8) 08/05/24 13:03 [place] # (Auto) 0.9 10^3/uL (0.2-0.9) 08/05/24 13:03 Eos # (Auto) 0.5 10^3/uL (0.0-0.8) 08/05/24 13:03 Baso # (Auto) 0.1 10^3/uL (0.0-0.1) 08/05/24 13:03 Nucleated RBC % (auto) 0 % 08/05/24 13:03 Nucleated RBCs # 0.0 /100WBC 08/05/24 13:03 Sodium 131 mmol/L (136-145) L 08/05/24 13:03 Potassium 4.3 mmol/L (3.5-5.1) 08/05/24 13:03 Chloride 96 mmol/L (98-107) L 08/05/24 13:03 Carbon Dioxide 21 mmol/L (22-29) L 08/05/24 13:03 Anion Gap 18.3 (5-19) 08/05/24 13:03 BUN 13 mg/dL (6-20) 08/05/24 13:03 Creatinine 0.7 mg/dL (0.5-0.9) 08/05/24 13:03 GFR Calculation 85.6 mL/min (90-130) L 08/05/24 13:03 Glucose 357 mg/dL (65-115) H 08/05/24 13:03 Calculated Osmolality 286 mOsm/kg (285-295) 08/05/24 13:03 Calcium 8.8 mg/dL (8.5-10.5) 08/05/24 13:03 Total Bilirubin 0.5 mg/dL (0.15-1.2) 08/05/24 13:03 AST 28 U/L (0-32) 08/05/24 13:03 ALT 25 U/L (0-33) 08/05/24 13:03 Alkaline Phosphatase 155 U/L (35-105) H 08/05/24 13:03 Troponin T Baseline 10 ng/L (0-10) 08/05/24 13:03 Troponin T 120 Minute 8.72 ng/L (0-10) 08/05/24 15:03 Delta Troponin T -1.28 ABS# (0-10) L 08/05/24 15:03 NT-Pro-B Natriuret Pep < 36 pg/mL (0-125) 08/05/24 13:03 Total Protein 7.0 g/dL (6.6-8.7) 08/05/24 13:03 Albumin 4.3 g/dL (3.5-5.2) 08/05/24 13:03 Globulin 2.7 g/dL (1.3-4.6) 08/05/24 13:03 All radiology interpretation(s) finalized by discharge Discharge Plan Discharge Patient Disposition: Home Clinical Impression: Non-cardiac chest pain, COPD (chronic obstructive pulmonary disease), Incidental pulmonary nodule Condition: Stable Prescriptions: New hydrocodone-acetaminophen 5-325 mg tablet 1 tab PO Q8H PRN (Reason: pain) Qty: 14 0RF Rx Instructions: Take 1/2 to 1 tab every 8 hours as needed for pain diclofenac sodium 50 mg tablet,delayed release (DR/EC) 50 mg PO BID PRN (Reason: pain) Qty: 14 0RF polyethylene glycol 3350 [Miralax] 17 gram/dose powder 17 g PO DAILY Qty: 510 0RF Rx Instructions: Take 1 scoop daily while taking pain medications. prednisone 20 mg tablet 60 mg PO DAILY Qty: 20 0RF Rx Instructions: 3 tabs (60 mg) x 3 days. 2 tabs (40 mg) x 3 days. 1 tab (20 mg) x 3 days. 1/2 tab (10 mg) x 4 days ondansetron 4 mg tablet,disintegrating 4 mg PO Q8H PRN (Reason: nausea and vomiting) Qty: 10 0RF No Action lisinopril 5 mg tablet 5 mg PO DAILY Qty: 30 2RF methylprednisolone acetate [Depo-Medrol] 80 mg/mL suspension 80 mg Infiltration ONCE Qty: 1 0RF bupivacaine (PF) 0.25 % (2.5 mg/mL) solution 2 ml Infiltration ONCE Qty: 1 0RF gabapentin 300 mg capsule 300 mg PO TID Qty: 90 2RF topiramate 50 mg tablet 50 mg PO BID 30 Days Qty: 60 0RF (DME) joseph balance brace or equivalent with orthopedic shoes See Rx Instructions .Route .MEDSUPPLY Qty: 1 0RF Rx Instructions: As directed by [facility] [place] rosuvastatin 20 mg tablet 20 mg PO DAILY metformin 1,000 mg tablet 1,000 mg PO DAILY acetaminophen [Tylenol Extra Strength] 500 mg tablet 500 mg PO Q6H PRN Januvia 100 mg tablet 100 mg PO DAILY tramadol 50 mg tablet 50 mg PO BID PRN (Reason: pain) Qty: 45 0RF Discharge Orders: Discharge ED (Routine); Ordered 08/05/24 Ordered By: Soo Rogers Referrals: Vivian Granado PA [Primary Care Provider] - Discharge Diet: Usual diet Discharge Activity: Increase activity as tolerated Patient Instructions: Noncardiac Chest Pain (ED) Activity Restrictions/Additional Instructions: A pulmonary nodule was seen on imaging. This will need follow up yearly imaging with your primary provider. Please schedule an appointment concerning this. Thank you for choosing [facility] for your healthcare needs today. Please realize this is an emergency room and that we are providing you with a medical screening exam and this may not be complete and all inclusive of all the testing and or work up that you may need to determine your ailment or severity of your illness. You have been screened and evaluated and felt safe for discharge. Health conditions do change or evolve sometimes and as such it is important that you follow up with your Primary Doctor to be re checked, 3-5 days is a general good time frame for follow up. You are always welcome to return to the ED for re assessment if your symptoms are worsening or you have new concerns Coding Level of Care Code ED Assembly Line Inspector for Bridgette Graham
[2024-08-05 13:37] LABS: Alanine Aminotransferase 25 U/L (0-33); Albumin Level 4.3 g/dL (3.5-5.2); Alkaline Phosphatase 155 U/L (35-105); Aspartate Amino Transferase 28 U/L (0-32); Blood Urea Nitrogen 13 mg/dL (6-20); Calcium 8.8 mg/dL (8.5-10.5); Carbon Dioxide 21 mmol/L (22-29); Chloride 96 mmol/L (98-107); Creatinine Clr Calc Pharmacy 82.6063; Globulin 2.7 g/dL (1.3-4.6); Glomerular Filtration Rate 85.6 mL/min (90-130); Glucose 357 mg/dL (65-115); Osmolality Calculated 286 mOsm/kg (285-295); Sodium 131 mmol/L (136-145); Total Bilirubin 0.5 mg/dL (0.15-1.2)
[2024-08-05 13:38] LABS: Troponin(5th) Baseline 10 ng/L (0-10)
--- NOTE | 2024-08-05 13:39 | CTR_ITS ---
PROCEDURE INFORMATION: Exam: CTA Chest With Contrast Exam date and time: 08/05/2024 3:15 PM Age: 59 years old Clinical indication: Chest wall pain; Additional info: Chest pain TECHNIQUE: Imaging protocol: Computed tomographic angiography of the chest with contrast. Exam focused on the arteries. 3D rendering (Not supervised by radiologist): MIP and/or 3D reconstructed images were created by the technologist. Radiation optimization: All CT scans at this facility use at least one of these dose optimization techniques: automated exposure control; mA and/or kV adjustment per patient size (includes targeted exams where dose is matched to clinical indication); or iterative reconstruction. Contrast material: OMNIPAQUE 350; Contrast volume: 100 ml; Contrast route: INTRAVENOUS (IV); COMPARISON: CT chest wo [facility] [id number] 12/14/2023 4:05 PM RADIATION DOSE METRICS: Total DLP (mGy-cm): 372.01 FINDINGS: Pulmonary arteries: Normal. No pulmonary emboli. Aorta: Mild atherosclerotic aortic calcifications. No aortic aneurysm. Lungs: Similar moderate centrilobular emphysema. No focal consolidation or generalized interstitial process. Stable 8 mm right upper lobe nodule on series 4, image 17. Stable 5 mm right lower lobe nodule with spiculated margins on series 4 image 40. No new or enlarging pulmonary nodules. Pleural spaces: Unremarkable. No pneumothorax. No pleural effusion. Heart: Unremarkable. No cardiomegaly. No pericardial effusion. Coronary arteries: Multivessel coronary artery calcifications. Lymph nodes: Unremarkable. No enlarged lymph nodes. Liver: Diffuse hepatic steatosis. Gallbladder and biliary ducts: Prior cholecystectomy. Bones/joints: Unremarkable. No acute fracture. Soft tissues: Unremarkable. CT/CT angio chest PE protcl [id number] IMPRESSION: 1. No evidence of pulmonary emboli. 2. No acute findings in the chest. 3. Stable pulmonary nodules as detailed above. Recommend continued annual CT lung screening. 4. Similar moderate emphysema. 5. Multivessel coronary artery calcifications. COMMENTS: The presence of pulmonary emphysema on CT is an independent risk factor for lung cancer. In the absence of a history or active diagnosis of lung cancer, it is recommended that this patient with emphysema be evaluated for enrollment in a low dose CT lung cancer screening program.
[2024-08-05 13:51] LABS: Anion Gap 18.3 (5-19); Potassium 4.3 mmol/L (3.5-5.1)
[2024-08-05 14:00] LABS: NT Pro B Type Natriuretic Pept < 36 pg/mL (0-125)
--- NOTE | 2024-08-05 14:41 | ECG_ITS ---
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
[2024-08-05] MEDS: ketorolac 30 mg/mL INJ IVP (14:54)
[2024-08-05] MEDS: methylPREDNISolone sod succ 125 mg/2 mL INJ IVP (14:56)
[2024-08-05 14:57] VITALS: BP 107/74
[2024-08-05] MEDS: iohexol 350 mg/mL 500 mL Btl (per mL) IV (15:19)
[2024-08-05 15:34] LABS: Troponin 5 2HR 8.72 ng/L (0-10)
[2024-08-05 15:35] LABS: Troponin 5 2HR Delta -1.28 ABS# (0-10)
[2024-08-05 16:10] VITALS: BP 136/89; PULSE 85; O2SAT 98
[2024-08-05 18:26] VITALS: BP 145/96; PULSE 68; O2SAT 97
== END 2024-08-05 18:27 | disposition home or self-care (01) ==
PROVIDERS: Physician Assistant; Emergency Provider Emergency Medicine; PCP Physician Assistant
DX: R07.89 Other chest pain (principal); J44.9 Chronic obstructive pulmonary disease, unspecified; R91.1 Solitary pulmonary nodule; Z79.84 Long term (current) use of oral hypoglycemic drugs; F17.210 Nicotine dependence, cigarettes, uncomplicated; E11.9 Type 2 diabetes mellitus without complications; I10 Essential (primary) hypertension
CPT/HCPCS: 36415; 71045; 71275; 80053; 83880; 84484; 85025; 93005; 96374; 96375; 99285; J1885; J2919

== ENCOUNTER 2024-08-12 18:54 | Observation (INO) | payer MEDICARE, MEDICAID, SELFPAY ==
--- NOTE | 2024-08-12 08:00 | USCV_ITS ---
Lorna Urias Age: 59 Gender: F : 1965 Exam Date: 08/12/2024 23:41 Ordering Phys: Chris Fernández MD Technologist: VIKTOR Exam Location: [facility] [place] Indication: chest pain and elevated troponin BP: 161 / 95 HR: 72 Rhythm: Sinus Technical Quality: Adequate MEASUREMENTS (Male / Female) Normal Values 2D ECHO LV Diastolic Diameter PLAX 3.6 cm 4.2 - 5.9 / 3.9 - 5.3 cm IVS Diastolic Thickness 1.4 cm 0.6 - 1.0 / 0.6 - 0.9 cm IVS Systolic Thickness 1.4 cm LVPW Diastolic Thickness 1.4 cm 0.6 - 1.0 / 0.6 - 0.9 cm LVPW Systolic Thickness 1.1 cm LVOT Diameter 1.9 cm LV Ejection Fraction 2D Teich 54.6 % LV Ejection Fraction MOD 4C 61.5 % LV Ejection Fraction MOD 2C 50.8 % LV Ejection Fraction 2C AL 53.4 % LA Diameter 2.6 cm LA Sys Volume AL 38.5 cm cubed LA Sys Volume Index AL 21.7 cm cubed/m squared Aorta at Sinotubular Diameter 1.9 cm IVC Diameter 1.4 cm M-MODE LA Ao Ratio MM 1.0 AV Cusp Separation MM 1.3 cm DOPPLER AV Peak Velocity 169.0 cm/s LVOT Peak Velocity 165.0 cm/s AV Area Cont Eq vti 2.9 cm squared AV Area Cont Eq pk 2.8 cm squared MV Peak Velocity 122.0 cm/s MV Area PHT 4.6 cm squared Mitral E to A Ratio 0.8 TV Peak E Velocity 56.0 cm/s PV Peak Velocity 124.0 cm/s FINDINGS Left Ventricle Mildly reduced LV systolic function. Mid distal anterior and anteroseptal hypokinesis. Estimated LVEF 50%. Right Ventricle Normal right ventricular size and systolic function. Right Atrium Normal right atrial size. Left Atrium Normal left atrial size. Mitral Valve Mildly thickened mitral valve. Trace mitral valve regurgitation. Aortic Valve Mildly thickened aortic valve.no aortic valve stenosis. No aortic valve regurgitation. Tricuspid Valve Structurally normal tricuspid valve. Pulmonic Valve Structurally normal pulmonic valve. Trace pulmonary valve regurgitation. Pericardium No pericardial effusion. Aorta Normal size aortic root. IVC Normal inferior vena cava. CONCLUSIONS Mildly reduced LV systolic function. Estimated LVEF 50%. Mid distal anterior, anteroseptal hypokinesis. No significant valvular abnormality noted. RV and right heart pulmonary pressures. Reduced LV systolic function with regional wall motion abnormalities consistent with acute myocardial infarction. Recommend further clinical evaluation and management accordingly. Noelle Anaya MD (Electronically Signed) Final Date: 13 August 2024 09:17 S
--- NOTE | 2024-08-12 18:55 | ECG_ITS ---
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 Measurements Intervals [place] Rate: 80 P: 70 AK: 144 QRS: 36 QRSD: 84 T: 69 QT: 367 QTc: 424 Interpretive Statements SINUS RHYTHM Compared to ECG 08/05/2024 14:34:18 No significant changes Electronically Signed On 08-13-2024 18:05:26 CDT by Noelle Anaya M.D. [id number]
--- NOTE | 2024-08-12 18:55 | XRR_ITS ---
PROCEDURE INFORMATION: Exam: XR Chest Exam date and time: 08/12/2024 7:06 PM Age: 59 years old Clinical indication: Pain; Chest pressure; Additional info: Cp TECHNIQUE: Imaging protocol: Radiologic exam of the chest. Views: 1 view. COMPARISON: CT angio chest PE protcl [id number] 08/05/2024 3:15 PM FINDINGS: Lungs: Left lower lobe atelectasis versus minimal infiltrate. Pleural spaces: Unremarkable. No pleural effusion. No pneumothorax. Heart/Mediastinum: Unremarkable. No cardiomegaly. Bones/joints: Unremarkable. XR/XR chest 1V portable [id number] IMPRESSION: Left lower lobe atelectasis versus minimal infiltrate.
[2024-08-12 19:01] VITALS: BP 161/95; PULSE 79; RESP 26; TEMP 36.4; O2SAT 97
[2024-08-12 19:39] LABS: Basophils # 0.1 10^3/uL (0.0-0.1); Eosinophils # 0.1 10^3/uL (0.0-0.8); Eosinophils % 1.1 %; Hematocrit 50.3 % (36-47); Lymphocytes # 1.7 10^3/uL (0.8-4.8); Lymphocytes % 15.3 %; Mean Corpuscular HGB Conc 33.8 g/dL (30-55); Mean Corpuscular Hemoglobin 29.4 pg (27-33); Mean Platelet Volume 8.6 fL (7.4-10.4); Monocytes # 0.9 10^3/uL (0.2-0.9); Neutrophils # 7.96 10^3/uL (1.8-7.7); Neutrophils % 73.7 %; Nucleated Red Blood Cells % 0 %; Platelet Count 386 10^3/cmm (157-399); Red Blood Count 5.78 10^6/uL (3.85-5.65); Red Cell Distribution Width 12.1 % (12.1-15.1); White Blood Count 10.82 10^3/uL (3.29-11.43)
[2024-08-12 19:52] LABS: Alanine Aminotransferase 42 U/L (0-33); Albumin Level 4.2 g/dL (3.5-5.2); Alkaline Phosphatase 127 U/L (35-105); Anion Gap 19.7 (5-19); Aspartate Amino Transferase 37 U/L (0-32); Blood Urea Nitrogen 22 mg/dL (6-20); Calcium 8.6 mg/dL (8.5-10.5); Carbon Dioxide 19 mmol/L (22-29); Chloride 92 mmol/L (98-107); Creatinine Clr Calc Pharmacy 72.2805; Globulin 2.5 g/dL (1.3-4.6); Glomerular Filtration Rate 73.4 mL/min (90-130); Glucose 404 mg/dL (65-115); Lipase 87 U/L (13-60); Osmolality Calculated 282 mOsm/kg (285-295); Potassium 4.7 mmol/L (3.5-5.1); Sodium 126 mmol/L (136-145); Total Bilirubin 0.6 mg/dL (0.15-1.2); Total Protein 6.7 g/dL (6.6-8.7)
[2024-08-12 19:53] LABS: Troponin(5th) Baseline 58 ng/L (0-10)
--- NOTE | 2024-08-12 19:54 | ED_ITS ---
HPI - Chest Pain 2 General: Chief Complaint: Chest Pain Stated Complaint: CP n/ left arm pain Time Seen by Provider: 08/12/24 19:45 Source: patient Mode of arrival: ambulatory Limitations: no limitations History of Present Illness: 59-year-old female who states that she b een having epigastric and chest pain over the last week she is seen here a week ago and diagnosed with pleurisy has been on prednisone but states her pain has improved she also has her history of reflux and states it feels somewhat like that some burning sensation in her chest states ongoing for the last week states pain is currently 8 out of 10 denies any diarrhea or vomiting Associated symptoms: Reports abdominal pain; Deny dyspnea, fever(s), nausea or vomiting Related Data Home Medications Medication Instructions Recorded Confirmed acetaminophen 500 mg tablet 500 mg PO Q6H PRN 06/08/22 07/12/23 (Tylenol Extra Strength) metformin 1,000 mg tablet 1,000 mg PO DAILY 06/08/22 07/12/23 rosuvastatin 20 mg tablet 20 mg PO DAILY 06/08/22 07/12/23 sitagliptin phosphate 100 mg 100 mg PO DAILY 03/20/23 07/12/23 tablet (Januvia) Previous Rx's Medication Instructions Recorded lisinopril 5 mg tablet 5 mg PO DAILY #30 tabs 07/26/20 joseph balance brace or equivalent #1 ea 05/02/22 with orthopedic shoes gabapentin 300 mg capsule 300 mg PO TID pain #90 caps 07/13/22 tramadol 50 mg tablet 50 mg PO BID PRN pain #45 tabs 05/07/23 topiramate 50 mg tablet 50 mg PO BID pain 30 days #60 tabs 07/12/23 diclofenac sodium 50 mg 50 mg PO BID PRN pain #14 tabs 08/05/24 tablet,delayed release hydrocodone 5 mg-acetaminophen 325 1 tab PO Q8H PRN pain #14 tabs 08/05/24 mg tablet ondansetron 4 mg disintegrating 4 mg PO Q8H PRN nausea and 08/05/24 tablet vomiting #10 tabs polyethylene glycol 3350 17 17 g PO DAILY #510 grams 08/05/24 gram/dose oral powder (Miralax) prednisone 20 mg tablet 60 mg (3 x 20 mg) PO DAILY #20 tabs 08/05/24 Allergies Allergy/AdvReac Type Severity Reaction Status Date / Time No Known Allergies Allergy Verified 08/12/24 19:06 Review of Systems 2 Const: Denies: fever(s), chills, body aches or change in appetite ENMT: Denies: throat pain or dental pain Card: Reports: chest pain Resp: Denies: dyspnea GI: Reports: abdominal pain; Denies: nausea, vomiting or diarrhea Musc: Denies: neck pain or back pain Skin/Breast: Denies: rash Neuro: Denies: headache(s) PFSH ED 2 PFSH: Medical History Diabetes GERD (gastroesophageal reflux disease) Hyperlipidemia Social History Smoking and tobacco/nicotine status: current every day tobacco/nicotine user cigarettes Packs smoked per day: 0.5 Alcohol intake: never Substance/Drug Use: never Physical Exam 2 Const: COMMON NORMALS: no acute distress, patient oriented x3 and healthy appearing HENMT: COMMON NORMALS: normocephalic and atraumatic HEAD & SCALP: n ormocephalic and atraumatic Eye: COMMON NORMALS: conjunctivae normal CONJUNCTIVA: Yes conjunctivae normal Neck/C-Spine: COMMON NORMALS: full ROM and supple Chest: COMMONS NORMALS: normal inspection of the chest and normal palpation of entire chest wall Resp: COMMON NORMALS: normal respiratory effort, No retractions, No use of accessory muscles and clear to auscultation bilaterally AUSCULTATION: clear to auscultation bilaterally Cardio: COMMON NORMALS: regular rate, regular rhythm and No murmurs present (Cardio) RATE: regular rate RHYTHM: regular rhythm Extremity: COMMON NORMALS: normal to inspection and full ROM Neuro: COMMON NORMALS: patient oriented x3, moves all extremities and no focal motor deficits Psych: COMMON NORMALS: mental status grossly normal, Normal thought process present and cooperative THOUGHT PROCESS: Normal thought process present Skin: COMMON NORMALS: no rashes or lesions noted and no wounds GENERAL SKIN EXAM: no rashes or lesions noted Course 2 Vital Signs: Vital signs: Vital Signs Temperature 97.6 F 08/12/24 19:01 Pulse Rate 93 08/12/24 20:29 Respiratory Rate 26 H 08/12/24 19:01 Blood Pressure 124/83 08/12/24 20:29 Pulse Oximetry 97 08/12/24 20:29 Oxygen Delivery Me thod Room Air 08/12/24 20:29 MDM - Chest Pain Medical Decision Making Patient presents here with chest pain going on for weeks she seen her last week her troponin was 10 and today it is 58 pain here is improved after nitro did give her aspirin we will give her dose of Lovenox I spoke to the hospitalist will admit for ACS rule out as her troponins elevated over the last week. Medical Records I reviewed the patient's medical records. Lab Data I reviewed the patient's lab results. 08/12/24 19:29 08/12/24 19:29 Radiology Impressions Chest X-Ray 08/12/24 18:55 IMPRESSION: Left lower lobe atelectasis versus minimal infiltrate. Laboratory Results WBC 10.82 10^3/uL (3.29-11.43) 08/12/24 19: RBC 5.78 10^6/uL (3.85-5.65) H 08/12/24 19: Hgb 17.00 g/dL (11.27-16.99) H 08/12/24 19: Hct 50.3 % (36-47) H 08/12/24: MCV 87.0 fl (85-98) 08/12/24: MCH 29.4 pg (27-33) 08/12/24: MCHC 33.8 g/dL (30-55) 08/12/24: RDW 12.1 % (12.1-15.1) 08/12/24 19: Plt Count 386 10^3/cmm (157-399) 08/12/24 19: MPV 8.6 fL (7.4-10.4) 08/12/24: Neut % (Auto) 73.7 % 08/12/24: Lymph % (Auto) 15.3 % 08/12/24: [place] % (Auto) 8.0 % 08/12/24 19: Eos % (Auto) 1.1 % 08/12/24: Baso % (Auto) 1.0 % 08/12/24: Neut # (Auto) 7.96 10^3/uL (1.8-7.7) H 08/12/24 19: Lymph # (Auto) 1.7 10^3/uL (0.8-4.8) 08/12/24 19: [place] # (Auto) 0.9 10^3/uL (0.2-0.9) 08/12/24 19: Eos # (Auto) 0.1 10^3/uL (0.0-0.8) 08/12/24 19: Baso # (Auto) 0.1 10^3/uL (0.0-0.1) 08/12/24 19: Nucleated RBC % (auto) 0 % 08/12/24 19: Nucleated RBCs # 0.0 /100WBC 08/12/24 19: Sodium 126 mmol/L (136-145) L 08/12/24 19: Potassium 4.7 mmol/L (3.5-5.1) 08/12/24: Chloride 92 mmol/L (98-107) L 08/12/24: Carbon Dioxide 19 mmol/L (22-29) L 08/12/24 19: Anion Gap 19.7 (5-19) H 08/12/24 19: BUN 22 mg/dL (6-20) H 08/12/24 19: Creatinine 0.8 mg/dL (0.5-0.9) 08/12/24 19: GFR Calculation 73.4 mL/min (90-130) L 08/12/24: Glucose 404 mg/dL (65-115) H 08/12/24: Calculated Osmolality 282 mOsm/kg (285-295) L 08/12/24 19: Calcium 8.6 mg/dL (8.5-10.5) 08/12/24 19: Total Bilirubin 0.6 mg/dL (0.15-1.2) 08/12/24 19: AST 37 U/L (0-32) H 08/12/24 19: ALT 42 U/L (0-33) H 08/12/24 19: Alkaline Phosphatase 127 U/L (35-105) H 08/12/24 19: Troponin T Baseline 58 ng/L (0-10) H 10/29/24 19:29 Total Protein 6.7 g/dL (6.6-8.7) 08/12/24 19:29 Albumin 4.2 g/dL (3.5-5.2) 08/12/24 19:29 Globulin 2.5 g/dL (1.3-4.6) 08/12/24 19:29 Lipase 87 U/L (13-60) H 08/12/24 19:29 All radiology interpretation(s) finalized by discharge EKG Data EKG 1: I personally reviewed and interpreted this EKG as follows: EKG interpretation date: 08/12/24 EKG interpretation time: 18:54 Interpretation: nsr hr [address] elevation qrs 84 qtc 402 Discharge Plan Discharge Patient Disposition: Admitted As Inpatient Clinical Impression: Chest pain Condition: Stable Prescriptions: No Action lisinopril 5 mg tablet 5 mg PO DAILY Qty: 30 2RF methylprednisolone acetate [Depo-Medrol] 80 mg/mL suspension 80 mg Infiltration ONCE Qty: 1 0RF bupivacaine (PF) 0.25 % (2.5 mg/mL) solution 2 ml Infiltration ONCE Qty: 1 0RF gabapentin 300 mg capsule 300 mg PO TID Qty: 90 2RF topiramate 50 mg tablet 50 mg PO BID 30 Days Qty: 60 0RF (DME) joseph balance brace or equivalent with orthopedic shoes See Rx Instructions .Route .MEDSUPPLY Qty: 1 0RF Rx Instructions: As directed by [facility] rosuvastatin 20 mg tablet 20 mg PO DAILY metformin 1,000 mg tablet 1,000 mg PO DAILY acetaminophen [Tylenol Extra Strength] 500 mg tablet 500 mg PO Q6H PRN Januvia 100 mg tablet 100 mg PO DAILY tramadol 50 mg tablet 50 mg PO BID PRN (Reason: pain) Qty: 45 0RF hydrocodone-acetaminophen 5-325 mg tablet 1 tab PO Q8H PRN (Reason: pain) Qty: 14 0RF Rx Instructions: Take 1/2 to 1 tab every 8 hours as needed for pain diclofenac sodium 50 mg tablet,delayed release (DR/EC) 50 mg PO BID PRN (Reason: pain) Qty: 14 0RF polyethylene glycol 3350 [Miralax] 17 gram/dose powder 17 g PO DAILY Qty: 510 0RF Rx Instructions: Take 1 scoop daily while taking pain medications. prednisone 20 mg tablet 60 mg PO DAILY Qty: 20 0RF Rx Instructions: 3 tabs (60 mg) x 3 days. 2 tabs (40 mg) x 3 days. 1 tab (20 mg) x 3 days. 1/2 tab (10 mg) x 4 days ondansetron 4 mg tablet,disintegrating 4 mg PO Q8H PRN (Reason: nausea and vomiting) Qty: 10 0RF Referrals: Vivian Granado PA [Primary Care Provider] - Coding Level of Care Code ED Respiratory Therapy Director for Bridgette Graham
[2024-08-12] MEDS: aspirin 81 mg Chew Tablet 324 MG PO (20:10)
[2024-08-12] MEDS: lidocaine 2% viscous 15 ML, aluminum-mag hydrox-simethicon 30 ML, sucralfate oral liq 1 GM PO ×2 (20:10→23:10)
[2024-08-12] MEDS: sodium chloride 0.9% 1,000 ML 999 ML IV (20:20)
[2024-08-12] MEDS: nitroglycerin 0.4 mg sublingual Tablet SUBLINGUAL (20:24)
[2024-08-12] MEDS: enoxaparin 80 mg/0.8 mL Syringe 70 MG SUBCUT (20:25)
[2024-08-12 20:29] VITALS: BP 124/83; PULSE 93; O2SAT 97
[2024-08-12 21:28] VITALS: BP 124/83; PULSE 93; O2SAT 97
[2024-08-12 21:31] VITALS: BP 114/79; PULSE 73; RESP 18; TEMP 36.7; O2SAT 97
--- NOTE | 2024-08-12 21:39 | ECG_ITS ---
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 Measurements Intervals [place] Rate: 74 P: 59 VA: 138 QRS: 53 QRSD: 91 T: 80 QT: 403 QTc: 447 Interpretive Statements SINUS RHYTHM MINIMAL ST DEPRESSION [0.025+ mV ST DEPRESSION] Compared to ECG 08/12/2024 18:54:35 ST (T wave) deviation now present Electronically Signed On 08-13-2024 18:07:50 CDT by Noelle Anaya M.D. [id number]
[2024-08-12 21:47] LABS: Troponin 5 2HR 81.33 ng/L (0-10)
[2024-08-12 21:48] LABS: Troponin 5 2HR Delta 23.33 ABS# (0-10)
[2024-08-12 22:00] VITALS: PULSE 72
[2024-08-12] MEDS: sodium chloride 0.9% 1,000 ML 150 ML IV (22:10)
--- NOTE | 2024-08-12 22:47 | P.HP_ITS ---
Providers/Chief Complaint 2 Admitting Physician: Chris Fernández MD Primary Care Provider: Vivian Granado Chief Complaint: CP n/ left arm pain History of Present Illness Lorna Urias is a 59 year old female who presents with chest pain starting August 05. She was seen in the emergency department by Dr. Parada, and thought to have pleurisy. She was started on prednisone taper 60 mg for 3 days 40 mg for 3 days 20 mg for 3 days then 10 mg for 3 days. She is currently on the 20 mg dose. She states it did not help her chest pain at all. Her chest pain is worse with activity but also with breathing and eating. She has a history of GERD and previously treated with Protonix which was changed to Pepcid due to nausea that developed after taking it for some time. She has CT looking for PE on 1021 showed COPD and coronary calcifications she has never had coronary artery disease or stroke. She tells me a stress test done 6 months ago for chest pain was okay. EKG today normal but troponin has risen in the last 7 days from 8.72 on the to 53 on presentation in the emergency department to 81 on repeat. Lipase also mildly elevated 87 Patient says she stopped smoking 4 days ago. She has never been on steroids prior to the . She is on inhalers prior to this Review of Systems 2 Narrative: Patient has had some nausea but no vomiting she has been eating boiled egg noodles plain tried some butter today but thought it made her pain worse. She has acid reflux at times so severe that when she bends forward it comes out her nose. She states that Protonix was stopped due to stomach upset and she now is only on 20 mg of Pepcid daily Medications/Allergies Home Medications Medication Instructions Recorded Confirmed Last Taken Type lisinopril 5 mg tablet 5 mg PO DAILY #30 tabs 07/26/20 08/12/24 08/11/24 Rx joseph balance brace or equivalent #1 ea 05/02/22 08/12/24 Unknown Rx with orthopedic shoes acetaminophen 500 mg tablet 500 mg PO Q6H PRN Pain, Mild 06/08/22 08/12/24 Unknown History (Tylenol Extra Strength) metformin 1,000 mg tablet 1,000 mg PO BID 06/08/22 08/12/24 08/12/24 History rosuvastatin 20 mg tablet 20 mg PO DAILY 06/08/22 08/12/24 08/11/24 History sitagliptin phosphate 100 mg 100 mg PO DAILY 03/20/23 08/12/24 08/12/24 History tablet (Januvia) hydrocodone 5 mg-acetaminophen 325 1 tab PO Q8H PRN pain #14 tabs 08/05/24 08/12/24 Unknown Rx mg tablet ondansetron 4 mg disintegrating 4 mg PO Q8H PRN nausea and 08/05/24 08/12/24 Unknown Rx tablet vomiting #10 tabs prednisone 20 mg tablet 60 mg (3 x 20 mg) PO DAILY #20 tabs 08/05/24 08/12/24 08/12/24 Rx insulin glargine 100 unit/mL 24 unit SUBCUT BEDTIME 08/12/24 08/12/24 08/11/24 History subcutaneous solution (Lantus U-100 Insulin) Allergies Allergy/AdvReac Type Severity Reaction Status Date / Time No Known Allergies Allergy Verified 08/12/24 19:06 PFSH Acute 2 PFSH: Medical History Diabetes GERD (gastroesophageal reflux disease) Hyperlipidemia Social History Smoking and tobacco/nicotine status: current every day tobacco/nicotine user cigarettes Packs smoked per day: 0.5 Alcohol intake: never Substance/Drug Use: never Vitals/I&O/Wt Last Vital Signs Temp 98.0 F 08/12/24 21:31 Pulse 73 08/12/24 21:31 Resp 18 08/12/24 21:31 BP 114/79 08/12/24 21:31 Pulse Ox 97 08/12/24 21:31 O2 Del Method Room Air 08/12/24 21:31 08/12/24 08/12/24 08/12/24 06:59 14:59 22:59 Intake Total 1000 / 1000 Balance 1000 / 1000 Weight last 48 hrs Weight 69.536 kg Weight 72.575 kg Physical Exam 2 Narrative: General well-developed well-nourished overweight female in no acute cardiopulmonary distress CV regular rate and rhythm Lungs clear to auscultation bilaterally Abdomen positive bowel sounds soft with epigastric tenderness she also has sternal tenderness but not lower abdominal tenderness there is no rebound Calves no tenderness cords asymmetry or pretibial edema Mood and affect normal Data 08/12/24 19:29 08/12/24 19:29 A&P Assessment and plan (1) Hyponatremia: This is of unclear etiology but the patient recently on steroids and decreasing dose but not an unusual dose for pleurisy. She should not have adrenal insufficiency that quickly. Patient shows prerenal azotemia and will be given additional saline. Mini panel in the morning (2) Chest pain: Patient will have additional cardiac enzymes. They are rising and worrisome for NSTEMI given her coronary calcifications, diabetes, hypertension. I will check lipid profile lipoprotein a and hs-CRP for the morning the patient will have an echocardiogram in the morning and likely need a cardiology consult (3) COPD (chronic obstructive pulmonary disease): stable (4) Diabetes: Sliding scale insulin and fingerstick blood glucose. Continue home insulin. Hold metformin for possible angiogram Qualifiers: Diabetes mellitus type: type 2 Diabetes mellitus intermediate project manager insulin use: unspecified intermediate project manager insulin use status Diabetes mellitus complication status: with other specified complication Qualified Code(s): E11.69 - Type 2 diabetes mellitus with other specified complication (5) Smoker: pt quit smoking. avoid nicotine if tolerating due to vasoconstriction Attestations 2 Medical Necessity Statement*: Patient admitted for chest pain observation. At this time plan for less than 2 midnights Time Spent in Patient Care: 75 minutes spent in evaluation coronatio n care for this patient today Coding Level of Care Code 83407 Diagnoses Hyponatremia E87.1 Chest pain R07.9 COPD (chronic obstructive pulmonary disease) J44.9 Type 2 diabetes mellitus with other specified complication, unspecified whether intermediate project manager insulin use E11.69 Diabetes mellitus type: type 2 Diabetes mellitus intermediate project manager insulin use: unspecified intermediate project manager insulin use status Diabetes mellitus complication status: with other specified complication Smoker F17.200
[2024-08-12] MEDS: pantoprazole 40 mg SDV IVP (23:12)
[2024-08-12] MEDS: insulin glargine 100 units/1 mL 24 UNIT SUBCUT (23:29)
[2024-08-13] VITALS (39 sets, daily range): BP systolic 79–134; BP diastolic 50–85; PULSE 56–90; RESP 14–28; TEMP 36.5–37; O2SAT 94–100
--- NOTE | 2024-08-13 00:45 | ECG_ITS ---
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 Measurements Intervals [place] Rate: 71 P: 68 PA: 142 QRS: 53 QRSD: 86 T: 82 QT: 417 QTc: 454 Interpretive Statements SINUS RHYTHM ST DEVIATION AND MODERATE T-WAVE ABNORMALITY, CONSIDER ANTEROLATERAL ISCHEMIA [-0.1+ mV T-WAVE IN V3-V6] Compared to ECG 08/12/2024 21:39:25 T-wave abnormality now present Possible ischemia now present Electronically Signed On 08-13-2024 18:04:25 CDT by Noelle Anaya M.D. [id number]
[2024-08-13 02:33] LABS: Basophils # 0.1 10^3/uL (0.0-0.1); Basophils % 0.6 %; Eosinophils % 0.3 %; Hematocrit 46.8 % (36-47); Lymphocytes # 1.4 10^3/uL (0.8-4.8); Lymphocytes % 12.5 %; Mean Corpuscular Hemoglobin 29.8 pg (27-33); Mean Corpuscular Volume 87.6 fl (85-98); Mean Platelet Volume 8.6 fL (7.4-10.4); Monocytes # 0.8 10^3/uL (0.2-0.9); Neutrophils # 8.49 10^3/uL (1.8-7.7); Neutrophils % 78.7 %; Nucleated Red Blood Cells % 0 %; Platelet Count 380 10^3/cmm (157-399); Red Blood Count 5.34 10^6/uL (3.85-5.65); Red Cell Distribution Width 12.2 % (12.1-15.1); White Blood Count 10.78 10^3/uL (3.29-11.43)
[2024-08-13] MEDS: HYDROcodone-acetaminophen 5-325 mg Tablet 1 TAB PO (02:37)
--- NOTE | 2024-08-13 02:37 | ECG_ITS ---
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 Measurements Intervals [place] Rate: 78 P: 59 ME: 132 QRS: 33 QRSD: 84 T: 79 QT: 385 QTc: 440 Interpretive Statements SINUS RHYTHM WITH OCCASIONAL ECTOPIC PREMATURE COMPLEXES LEFT VENTRICULAR HYPERTROPHY AND ST-T CHANGE [VOLTAGE CRITERIA PLUS ST/T ABNORMALITY] POSSIBLE SEPTAL MYOCARDIAL INFARCTION , OF INDETERMINATE AGE [30 ms Q WAVE IN V1/V2] Compared to ECG 08/13/2024 00:45:01 No significant change Electronically Signed On 08-13-2024 17:06:49 CDT by Noelle Anaya M.D. [id number]
[2024-08-13] MEDS: nitroglycerin 0.4 mg sublingual Tablet SUBLINGUAL (02:50)
[2024-08-13] MEDS: morphine 4 mg/mL SDV 1 mL 2 MG IVP (02:51)
[2024-08-13] MEDS: ondansetron 2 mg/ML SDV 2 mL 4 MG IVP (02:54)
[2024-08-13 02:58] LABS: Troponin 5 6HR 95.34 ng/L (0-10)
[2024-08-13 03:04] LABS: Alanine Aminotransferase 33 U/L (0-33); Albumin Level 3.8 g/dL (3.5-5.2); Alkaline Phosphatase 125 U/L (35-105); Aspartate Amino Transferase 30 U/L (0-32); Blood Urea Nitrogen 19 mg/dL (6-20); Calcium 7.7 mg/dL (8.5-10.5); Carbon Dioxide 19 mmol/L (22-29); Chloride 100 mmol/L (98-107); Chol HDL Ratio 9.26 mg/dL (0.0-4.40); Cholesterol 250 mg/dL (0-200); Creatinine Clr Calc Pharmacy 70.8275; Globulin 2.6 g/dL (1.3-4.6); Glomerular Filtration Rate 73.4 mL/min (90-130); Glucose 409 mg/dL (65-115); HDL Cholesterol 27 mg/dL (60-100); Lipase 95 U/L (13-60); Osmolality Calculated 290 mOsm/kg (285-295); Sodium 130 mmol/L (136-145); Total Bilirubin 0.4 mg/dL (0.15-1.2); Total Protein 6.4 g/dL (6.6-8.7); Triglycerides 838 mg/dL (0-150)
[2024-08-13 03:05] LABS: Anion Gap 15.6 (5-19); Magnesium 2.1 mg/dL (1.7-2.3); Potassium 4.6 mmol/L (3.5-5.1)
[2024-08-13 03:07] LABS: Troponin 5 6HR Delta 37.34 ng/L (0-12)
[2024-08-13 03:17] LABS: LDL Cholesterol Direct 128 mg/dL (0-100)
--- NOTE | 2024-08-13 03:19 | PC.NURSE ---
patient called out using call light and stated she had 10/10 chest pain after getting back from bathroom, EKG was obtained, called MD, ordered PRN nitro 0.4mg tabs Q5 minutes and PRN 2mg morphine Q1HR. After giving the nitro and morphine a couple minutes later patient stated chest pain was 2/10 and much better. Patient was educated that it would be better to use the BSC instead of the bathroom and to hit call light again if chest pains start again, patient agreed.
[2024-08-13] MEDS: sodium chloride 0.9% 1,000 ML 150 ML IV ×2 (05:14→12:28)
[2024-08-13 06:40] LABS: Glucose Point of Care 262 mg/dL (70-110)
[2024-08-13] MEDS: insulin lispro 100 unit/1 mL SUBCUT ×3 (08:45→20:34)
[2024-08-13] MEDS: sitagliptin 100 mg Tablet PO (09:17)
[2024-08-13] MEDS: atorvastatin 40 mg Tablet 80 MG PO (09:17)
[2024-08-13] MEDS: lisinopril 5 mg Tablet PO (09:17)
[2024-08-13] MEDS: pantoprazole 40 mg SDV IVP (09:17)
[2024-08-13] MEDS: aspirin 81 mg EC Tablet PO (09:17)
--- NOTE | 2024-08-13 09:42 | P.CONIM_ITS ---
Providers/Reason For Consult 2 Consulting Physician/Specialty*: Dr. Anaya/cardiology Reason for Consult*: Chest pain and elevated troponins Requesting Physician: Dr. Patel Attending Physician: Kacie Ross MD Primary Care Provider: Vivian Granado History of Present Illness History of Present Illness Lorna Urias is a 59 year old female with a history of hypertension diabetes mellitus and long history of smoking who presented with ongoing recurrent chest pain. The serial EKGs showed dynamic ST changes in the anteroseptal leads with elevated troponins, NSTEMI. Currently patient is resting comfortably, minimal chest pain. No resting shortness of air. Her vitals are stable. Clinically no signs symptom suggestive of heart failure. Patient was here about a week ago with the different type of chest pain and at that time it felt pain was likely due to GERD with some element of pleurisy and she was treated appropriately. The echo done earlier this morning showed anteroseptal hypokinesis with reduced LV EF 50%. The findings suggestive of acute KS. Review of Systems 2 Narrative: Detailed 10 point systemic review unremarkable except for as mentioned above in the history of present illness. She quit smoking about a week ago. According to patient her diabetes control is reasonably good. Medications/Allergies Home Medications Medication Instructions Recorded Confirmed Last Taken Type lisinopril 5 mg tablet 5 mg PO DAILY #30 tabs 07/26/20 08/12/24 08/11/24 Rx joseph balance brace or equivalent #1 ea 05/02/22 08/12/24 Unknown Rx with orthopedic shoes acetaminophen 500 mg tablet 500 mg PO Q6H PRN Pain, Mild 06/08/22 08/12/24 Unknown History (Tylenol Extra Strength) metformin 1,000 mg tablet 1,000 mg PO BID 06/08/22 08/12/24 08/12/24 History rosuvastatin 20 mg tablet 20 mg PO DAILY 06/08/22 08/12/24 08/11/24 History sitagliptin phosphate 100 mg 100 mg PO DAILY 03/20/23 08/12/24 08/12/24 History tablet (Januvia) hydrocodone 5 mg-acetaminophen 325 1 tab PO Q8H PRN pain #14 tabs 08/05/24 08/12/24 Unknown Rx mg tablet ondansetron 4 mg disintegrating 4 mg PO Q8H PRN nausea and 08/05/24 08/12/24 Unknown Rx tablet vomiting #10 tabs prednisone 20 mg tablet 60 mg (3 x 20 mg) PO DAILY #20 tabs 08/05/24 08/12/24 08/12/24 Rx insulin glargine 100 unit/mL 24 unit SUBCUT BEDTIME 08/12/24 08/12/24 08/11/24 History subcutaneous solution (Lantus U-100 Insulin) Allergies Allergy/AdvReac Type Severity Reaction Status Date / Time No Known Allergies Allergy Verified 08/12/24 19:06 Current Medications Generic Name Dose Route Start Last Admin Trade Name Freq PRN Reason Stop Dose Admin Hydrocodone Bitart/Acetaminophen 1 tab 08/12/24 22:36 08/13/24 02:37 Hydrocodone-Acetaminophen 5-325 Mg Tablet PO 1 tab Q4H PRN Administration MODERATE TO SEVERE PAIN Aspirin 81 mg 08/13/24 09:00 08/13/24 09:17 Aspirin 81 Mg Ec Tablet PO 81 mg DAILY ANKIT Administration Atorvastatin Calcium 80 mg 08/13/24 09:00 08/13/24 09:17 Atorvastatin 40 Mg Tablet PO 80 mg DAILY ANKIT Administration Enoxaparin Sodium 70 mg 08/13/24 08:00 08/13/24 09:29 Enoxaparin 40 Mg/0.4 Ml Syringe SUBCUT Not Given Q12H [facility] Sodium Chloride 1,000 mls @ 150 mls/hr 08/12/24 22:00 08/13/24 05:14 Sodium Chloride 0.9% IV 150 mls/hr .Q6H40M ANKIT Administration Insulin Glargine 24 unit 08/12/24 23:00 08/12/24 23:29 Insulin Glargine 100 Units/1 Ml SUBCUT 24 unit BEDTIME ANKIT Administration Insulin Human Lispro 0 unit 08/13/24 08:00 08/13/24 08:45 Insulin Lispro 100 Unit/1 Ml SUBCUT 8 unit WM&BEDTIME ANKIT Administration Protocol Lisinopril 5 mg 08/13/24 09:00 08/13/24 09:17 Lisinopril 5 Mg Tablet PO 5 mg DAILY ANKIT Administration Morphine Sulfate 2 mg 08/13/24 02:42 08/13/24 02:51 Morphine 4 Mg/Ml Sdv 1 Ml IVP 2 mg Q1H PRN Administration SEVERE PAIN Nitroglycerin 0.4 mg 08/13/24 02:42 08/13/24 02:50 Nitroglycerin 0.4 Mg Sublingual Tablet SUBLINGUAL 0.4 mg Q5M PRN Administration CHEST PAIN Ondansetron HCl 4 mg 08/12/24 22:36 08/13/24 02:54 Ondansetron 2 Mg/Ml Sdv 2 Ml IVP 4 mg Q8H PRN Administration vomiting, or N/V if npo Pantoprazole Sodium 40 mg 08/12/24 22:35 08/13/24 09:17 Pantoprazole 40 Mg Sdv IVP 40 mg DAILY ANKIT Administration Sitagliptin Phosphate 100 mg 08/13/24 09:00 08/13/24 09:17 Sitagliptin 100 Mg Tablet PO 100 mg DAILY ANKIT Administration PFSH Acute 2 PFSH: Medical History Diabetes GERD (gastroesophageal reflux disease) Hyperlipidemia Social History Smoking and tobacco/nicotine status: current every day tobacco/nicotine user cigarettes Packs smoked per day: 0.5 Alcohol intake: never Substance/Drug Use: never Vitals/I&O/Wt Last Vital Signs Temp 97.7 F 08/13/24 07:51 Pulse 69 08/13/24 07:51 Resp 25 H 08/13/24 07:51 BP 134/79 08/13/24 07:51 Pulse Ox 96 08/13/24 07:51 O2 Del Method Room Air 08/13/24 07:51 08/12/24 08/13/24 08/13/24 22:59 06:59 14:59 Intake Total 1000 / 1000 1000 / 1999 Balance 1000 / 1000 1000 / 1999 Weight last 48 hrs Weight 119 lb 11.376 oz Weight 153 lb 4.8 oz Weight 160 lb Physical Exam 2 Narrative: Patient laying comfortably. She is not in respiratory distress. Const: OTHER: Unremarkable HENMT: OTHER: Normal. Neck/C-Spine: OTHER: Normal. Resp: COMMON NORMALS: normal respiratory effort, No retractions, No use of accessory muscles, clear to auscultation bilaterally and percussion normal A USCULTATION: clear to auscultation bilaterally PERCUSSION: percussion normal Cardio: OTHER: Normal first and second heart sounds. No added sounds. There is no JVD. GI: OTHER: Soft nontender. Bowel sounds audible. Extremity: OTHER: Normal lower extremities. No lower extremity edema. Neuro: OTHER: Grossly intact. Skin: OTHER: Skin warm and dry. Data 08/13/24 02:12 08/13/24 02:12 A&P Assessment and plan (1) NSTEMI (non-ST elevated myocardial infarction): 59-year-old female patient with a history of hypertension and diabetes mellitus presented with intermittent chest pain for couple of days. EKG showed dynamic changes and elevated cardiac troponin enzymes. 1. NSTEMI. Currently patient is stable hemodynamically. Minimally ongoing chest discomfort. 2. Clinically no heart failure. Echo showed antral septal hypokinesis with LVEF 50%. 3. Vitals are stable. Plan: Patient already received loading dose of aspirin in the ER last night. Given her loading dose of Plavix 600 now and plan for cardiac cath with the possibility of angioplasty. Discussed the cardiac procedure with the patient in detail. Discussed risk and benefits and alternatives. Answered all of her questions. Patient agreed for the procedure which will be done this morning. (2) Chest pain: Coding Level of Care Code 13179 Diagnoses NSTEMI (non-ST elevated myocardial infarction) I21.4 Chest pain R07.9 Time Spent (min) 30
[2024-08-13] MEDS: clopidogrel 300 mg Tablet 600 MG PO (09:45)
--- NOTE | 2024-08-13 10:00 | PC.CHAP ---
Pastoral Care Encounter/Spiritual Assessment Type of Contact [] Declined application support manager visit [] Patient/Family/Request visit [] Outpatient visit [] Follow-up visit [] Physician referral [] Code/Alert [x] Routine visit [] Staff referral [] Actively dying [] Patient sleeping [] Family support [] [] Out of room [] Palliative care [] [] Receiving care in room [] Pre-surgical visit [] Trauma [] Long length of stay [] ICU visit [] Other: Relational/Emotional Strength [x] Patient feels connected with others/family/visitors/staff [] Distress [] Loneliness/isolation [] Abandonment Spirituality of Patient [x] Person of Celine [] Attends Confucianist of their Celine [x] Believes in Prayer [] Reads Bible or Temple materials [] There are Spiritual issues to be addressed Retail Selling Specialist Interventions [x] Prayer [x] Active listening [] Non-anxious presence [x] Spiritual/emotional support [] Crisis/trauma care [] Spiritual counseling [] Bereavement support [] Provided bereavement packet [] Provided Bible/devotional materials [] Provided toy/stuffed animal, coloring book to patient or family member [] Provided Communion [] Anointing/Egan [] Salvation [x] Completed spiritual assessment [] Other: Impact on Illness or Injury [] Angry [] Fearful [] Anxious [] Often cries [] Exhaustion [] Unable to work [] Unable to attend orthodoxy [] Unable to walk/stand [] Unable to read [] Unable to drive [] Unable to eat/drink [] Unable to sleep [] Unable to be with family [] Patient intubated [] Other: Summary Time spent with patient 5 min
--- NOTE | 2024-08-13 10:01 | XACV_ITS ---
Exam Room: [facility] Ht: 160 cm Wt: 54 kg BSA: 1.55 m2 Gender: Female : 1965 Any Known Allergies: No known allergies Exam Priority: Routine Procedure(s): Procedure Description: Diagnostic procedure Procedure Description: Left Heart Catheterization Procedure Description: Left ventriculography Procedure Description: Coronary Angiography Kendy MOORE; Diagnostic Cath Status: Urgent Diagnostic Findings * Left Main: mild 40% stenosis, MEGAN: 3 flow. * Left Main to Proximal Left Anterior Descending: severe 90% stenosis, MEGAN: 3 flow. * Proximal Left Anterior Descending: severe 90% stenosis, MEGAN: 3 flow. * Proximal Right Coronary Artery: severe 90% stenosis, MEGAN: 3 flow. * Mid Right Coronary Artery: severe 90% stenosis, MEGAN: 3 flow. * Distal Right Coronary Artery: subtotal occlusion, MEGAN: 3 flow. * Proximal Circumflex: obstructive 70% stenosis, MEGAN: 3 flow. * Mid Circumflex: severe 90% stenosis, MEGAN: 3 flow. * Coronary angiography shows right dominance. PCI Status: Urgent Conclusions 1. There is subtotal occlusion coronary artery disease with four vessel disease. 2. Normal left ventricular systolic function. Ejection fraction of 60%. Recommendations * Continue current medical management and risk factor modification. * 1-Return to [facility] for close monitoring and routine PCI care 2-Continue IV heparin drip as per ACS protocol 3-Hold Plavix for possible CABG 4-Statin with LDL goal of 70 mg/dl, aspirin 81 mg p.o. daily for life long 5-CT surgery consults for CABG 6-Optimal medical management for ND 7-Follow up with Dr. Larry in four weeks and establish care with primary care physician. Diagnostic RX Recommendation: CABG LV EDP: 20 mmHg Ventriculography Ejection Fraction: 60.0 % Pressures Phase:Rest AO : 134 / 56 ( 78 ) @ 11:36:00 AM 110 / 73 ( 87 ) @ 11:40:00 AM 107 / 59 ( 79 ) @ 11:54:00 AM 108 / 53 ( 78 ) @ 11:54:00 AM LV : 124 / 0 / 20 @ 11:52:00 AM 121 / 7 / 23 @ 11:54:00 AM 125 / 8 / 23 @ 11:54:00 AM Valves Phase:DefaultPhase AV : 16.0 @ 11:03:02 AM AV Mean Gradient: 17.0 @ 11:03:02 AM Clinical Evaluation EBL: 5mL-10mL Procedural Details Procedure Consent Obtained. Admit Source: In Patient. Pre-Procedure Time Out. Identified patient by full name and date of as verbalized by the patient/guarantor. Does the consent match the physician's order: Yes. Accurate & Complete Informed Consent: Yes. Inpatient/Outpatient History & Physical on Chart: Yes. If H&P is completed, is and addenduem needed: No; If yes, is the addendum complete: N/A. Visualize and Verify Site with Patient/Guarantor: N/A. Relevant Radiology Images available: N/A. The risks, benefits, and alternatives of sedation and/or procedure were discussed by physician. The patient agrees to continue. Procedure started. [facility] Clinical Fraility Score: 3: Managing Well. Clinic Office Assistant Indications: ACS > 24 hours. Chest Pain Symptom Assessment: Typical Angina Symptoms. Correct patient, site and procedure confirmed by cath team. Current diagnosis: NSTEMI. PERRLA. Strong, equal hand medical field representative bilaterally. Lungs clear x 5 lobes. IV Site on Arrival: 18 gauge in the right wrist. 18G to the right wrist removed. A 20 gauge IV was started in the right anticubital using aseptic technique. IV Fluids: 0.9% NaCl at KVO. 500 mL infused prior to laborer hoisting. Pre Procedural Pulses: bilateral radial was 3+. Pre Procedural Pulses: bilateral dorsalis pedis was 3+. Oxygen started at 2liters/min via nasal canula. right radial was prepped with chloroprep then draped in the usual sterile fashion. right groin was prepped with chloroprep then draped in the usual sterile fashion. Baseline sample Acquired. HR: 72 BPM. Physician notified. Physician arrived. Physician scrubbed in. Immediate Pre-Procedure Time Out. Correct Patient: Yes; Correct Procedure: Yes; Correct Site: Yes; Correct Patient Position: Yes; Correct Supplies: Yes; Dried Flammable Prep: Yes; Blood Products Available: Yes;. Lidocaine 1% infiltrated to the right radial. Arterial access obtained. A 5 uruguayan TIG catheter in over wire. Multiple views taken of left coronary artery. Catheter redirected to the RCA. Multiple views taken of right coronary artery. Catheter removed over the exchange wire. A 5 uruguayan Angled Pig catheter in over wire. Ns bolus stopped per verbal orders of Dr. Larry. NS now infusing at 100ml/hr. EDP Sample taken: LV 124/0,20; HR: 83 BPM; SpO2: 100%. LV gram performed in [place] @ 10 mL/second for a total of 30 mL. EDP Sample taken: LV 121/7,23; HR: 77 BPM; SpO2: 100%. Pullback taken: LV 125/8,23; AO 107/59(79); Mean: 17mmHg, Peak to Peak: 16mmHg, SEP: 21sec/min; HR: 74 BPM; SpO2: 100%. Catheter removed over the exchange wire. Post Procedure: Pulses reassessed and unchanged. PERRLA. Strong, equal hand medical field representative bilaterally. No VTE prophylaxis required. Medication's Wasted: Nitro = 49.8 mg. Medication's Wasted: Heparin = 1000 units. Medication's Wasted: Lidocaine 1% = 18 mL. Medication's Wasted: Other = Versed 2 mg Fentanyl 50mcg. Total IV fluids: 248 mL. Post-op diagnosis: Multi-vessel CAD. Complications: None. Estimated blood loss: 5mL-10mL. Responsiveness - Normal response to verbal stimuli; alert and oriented, PERRLA. Airway - Unaffected, no intervention required; spontaneous ventilation. Circulation: W/N/L, pulses unchanged. Nausea/Vomiting: No. A TR Band was successful obtaining hemostatsis at the Right Radial artery insertion site. Procedure completed. Patient transferred by bed to CPRU. Vital chart was stopped. Access Site Site: Right Radial artery Sheath Size: 6 Fr Hemostasis Method: TR Band Hemostasis Success: Successful Procedure Medications Start: 10:26 AM Stop: 10: AM Medication: Diphendryamine Amount: 25 mg Route: I.V. Start: 10:26 AM Stop: : AM Medication: Versed Amount: 1 mg Route: I.V. Start: 10:26 AM Stop: 10: AM Medication: Fentanyl Amount: 25 mcg Start: 10:32 AM Stop: :32 AM Medication: Versed Amount: 1 mg Route: I.V. Start: 10:37 AM Stop: 10:37 AM Medication: Nitrogylcerin Amount: 200 mcg Route: I.A. Start: 10:38 AM Stop: 10:38 AM Medication: 0.9% Saline Amount: 250 ml Route: I.V. bolus Start: 10:39 AM Stop: 10:39 AM Medication: Heparin Amount: 5000 units Route: I.V. Start: 10:50 AM Stop: 10:50 AM Medication: Fentanyl Amount: 25 mcg I, the attending physician, have reviewed and verified all procedure medications. Yes, all medications given per verbal order History/Risk Factors Hypertension: No Dyslipidemia: Yes Peripheral Arterial Disease (PAD): No Myocardial Infarction (ND): No Obesity: No Renal Disease: No Tobacco Use: Current/Recent(w/in 1 year) Prior Interventions PCI: No CABG: No Valve Surgery: No Report Signatures Finalized by Angella Larry MD on 08/13/2024 11:27 AM
--- NOTE | 2024-08-13 10:15 | PC.NURSE ---
to cardiac geoscience laboratory technician via w/c at this time
--- NOTE | 2024-08-13 10:26 | W.PM.OPSUD ---
Surgery/Procedure H&P Update DATE OF PROCEDURE: August 13, 2024 DATE H&P PERFORMED: 08/13/24 H&P UPDATE INFORMATION: I have reviewed H&P completed within last 30 days, I have examined patient prior to procedure and No changes to prior documentation PREOP DIAGNOSIS: [id number] OR PATIENT REASSESSED PRIOR TO SEDATION, WITH NO CHANGE NOTED: Yes PHYSICAL EXAM: alert, oriented x 3, clear to auscultation bilaterally and regular rate & rhythm AIRWAY EVAL/ANESTHESIA PLAN: ASA II, Risks, benefits & alternatives of sedation and/or procedure discussed and Patient agrees to continue as planned ADDITIONAL INFORMATION: Mallampati 2
[2024-08-13 11:26] LABS: Glucose Point of Care 112 mg/dL (70-110)
--- NOTE | 2024-08-13 12:31 | PC.NURSE ---
return from cardiac director of cardiac cath lab via w/c at 1110.report received.pt is alert and oriented x 3.denies pain at present.sr on monitor.right wrist with tr band on and inflated.right hand is warm to touch and with brisk capillary refill.palpable radial pulse noted distal to tr band.no hemtoma noted.pt instructed in activity restrictions s/p radial artery procedure...and instructed to notify staff for any bleeding,pain,dizziness,numbness or for any concerns at all.pt verb understanding of instructions
[2024-08-13 17:07] LABS: Glucose Point of Care 310 mg/dL (70-110)
--- NOTE | 2024-08-13 18:00 | P.PN_ITS ---
Subjective 2 Subjective: Overnight labs and H&P reviewed. Patient was taken to the [facility] today where she was found to have triple-vessel disease. Recommendation is to go for CABG. Cardiology team arranging for the same. Medications: Reviewed: Yes Vitals/I&O/Wt Last Vital Signs Temp 98.3 F 08/13/24 16:00 Pulse 73 08/13/24 16:00 Resp 21 H 08/13/24 16:00 BP 89/50 08/13/24 16:00 Pulse Ox 96 08/13/24 16:00 O2 Del Method Room Air 08/13/24 16:00 08/13/24 08/13/24 08/13/24 06:59 14:59 22:59 Intake Total 999 1240 / 1240 Balance 999 1240 / 1240 Weight last 48 hrs Weight 54.3 kg Weight 69.536 kg Weight 72.575 kg Physical Exam 2 Narrative: General: No acute distress, AO x3 HEENT: PERRLA, pupils bilaterally equal and reactive, pallors not present Chest: Normal vesicular breath sounds, no added sounds, equal good air entry bilaterally CVS: S1-S2 regular, no murmurs, no tachycardia, no gallops, no rubs Abdomen: Soft, nontender, no organomegaly, bowel sounds present Neuro: No focal deficits, no facial deformity, AO x3, power 5/5 in all limbs Data 08/13/24 02:12 08/13/24 02:12 A&P Assessment and plan (1) Hyponatremia: This is of unclear etiology but the patient recently on steroids and decreasing dose but not an unusual dose for pleurisy. She should not have adrenal insufficiency that quickly. Patient shows prerenal azotemia and will be given additional saline. Mini panel in the morning (2) Chest pain: Patient will have additional cardiac enzymes. They are rising and worrisome for NSTEMI given her coronary calcifications, diabetes, hypertension. I will check lipid profile lipoprotein a and hs-CRP for the morning the patient will have an echocardiogram in the morning and likely need a cardiology consult (3) COPD (chronic obstructive pulmonary disease): stable (4) Diabetes: Sliding scale insulin and fingerstick blood glucose. Continue home insulin. Hold metformin for possible angiogram Qualifiers: Diabetes mellitus type: type 2 Diabetes mellitus tank terminal gauger insulin use: unspecified group home insulin use status Diabetes mellitus complication status: with other specified complication Qualified Code(s): E11.69 - Type 2 diabetes mellitus with other specified complication (5) Smoker: pt quit smoking. avoid nicotine if tolerating due to vasoconstriction Plan August 13, 2024 Patient went to the [facility] today where she was found to have triple-vessel disease. Recommendation is for her to undergo CABG. Whether this will be achieved as an outpatient versus transfer to a different facility is being coordinated by cardiology. And we will follow-up on the recommendations. In the interim continue anticoagulation with Lovenox 1 mg/kg subcutaneously every 12 hours. Continue aspirin 81 mg p.o. daily, Lipitor 80 mg p.o. daily. Blood pressure 89/50 at the time of this assessment, MAP greater than 65. Discontinue further doses of lisinopril. Patient has been ordered fluids normal saline at 100 cc an hour from cardiology. This will be continued. Continue insulin sliding scale for diabetes mellitus. Currently chest pain-free. Attestations 2 Medical Necessity Statement*: Recommendation to undergo CABG, management of NSTEMI. Coding Level of Care Code Acute Code for Chg Fwd High MDM includes number and complexity of problems actively addressed during encounter, amount and/or complexity of data reviewed/ordered and described risk of complication, morbidity or mortality of management as documented Diagnoses Hyponatremia E87.1 Chest pain R07.9 COPD (chronic obstructive pulmonary disease) J44.9 Type 2 diabetes mellitus with other specified complication, unspecified whether group home insulin use E11.69 Diabetes mellitus type: type 2 Diabetes mellitus group home insulin use: unspecified tank terminal gauger insulin use status Diabetes mellitus complication status: with other specified complication Smoker F17.200
--- NOTE | 2024-08-13 18:37 | PC.NURSE ---
tr band slowly deflated and eventually removed at 1500.bp has been lowish this afternoon.dr cano aware.ivf's as ordered.pt asymptomatic.right wrist dressed with 2x2 gauze and secured with biocclusive drsg.no hematoma noted.right hand remains warm to touch and with brisk capillary refill.pt instructed in activity restrictions s/p tr band removal and instructed to notify staff for any bleeding,pain,numbness..or for any concerns at all.pt verb understanding of instructions
[2024-08-13 20:25] LABS: Glucose Point of Care 321 mg/dL (70-110)
[2024-08-13] MEDS: enoxaparin 40 mg/0.4 mL Syringe 70 MG SUBCUT (20:34)
[2024-08-13] MEDS: insulin glargine 100 units/1 mL 24 UNIT SUBCUT (20:34)
[2024-08-13] MEDS: sodium chloride 0.9% 1,000 ML 100 ML IV (22:50)
[2024-08-14] VITALS (9 sets, daily range): BP systolic 114–135; BP diastolic 65–83; PULSE 64–97; RESP 18–28; TEMP 36.4–37.3; O2SAT 95–97
[2024-08-14 03:52] LABS: Basophils # 0.1 10^3/uL (0.0-0.1); Basophils % 0.8 %; Eosinophils # 0.3 10^3/uL (0.0-0.8); Eosinophils % 4.3 %; Hematocrit 41.4 % (36-47); Lymphocytes # 2.9 10^3/uL (0.8-4.8); Lymphocytes % 36.9 %; Mean Corpuscular HGB Conc 32.6 g/dL (30-55); Mean Corpuscular Hemoglobin 29.9 pg (27-33); Mean Corpuscular Volume 91.8 fl (85-98); Mean Platelet Volume 8.6 fL (7.4-10.4); Monocytes # 0.9 10^3/uL (0.2-0.9); Monocytes % 10.7 %; Neutrophils # 3.71 10^3/uL (1.8-7.7); Neutrophils % 46.5 %; Nucleated Red Blood Cells % 0 %; Platelet Count 269 10^3/cmm (157-399); Red Blood Count 4.51 10^6/uL (3.85-5.65); Red Cell Distribution Width 12.4 % (12.1-15.1); White Blood Count 7.96 10^3/uL (3.29-11.43)
[2024-08-14 04:33] LABS: Anion Gap 11.9 (5-19); Blood Urea Nitrogen 13 mg/dL (6-20); Calcium 7.5 mg/dL (8.5-10.5); Carbon Dioxide 23 mmol/L (22-29); Chloride 109 mmol/L (98-107); Creatinine Clr Calc Pharmacy 56.4825; Glomerular Filtration Rate 64.1 mL/min (90-130); Glucose 161 mg/dL (65-115); Osmolality Calculated 294 mOsm/kg (285-295); Potassium 3.9 mmol/L (3.5-5.1); Sodium 140 mmol/L (136-145)
[2024-08-14 06:18] LABS: Glucose Point of Care 135 mg/dL (70-110)
[2024-08-14] MEDS: aspirin 81 mg EC Tablet PO (09:04)
[2024-08-14] MEDS: atorvastatin 40 mg Tablet 80 MG PO (09:04)
[2024-08-14] MEDS: pantoprazole 40 mg SDV IVP (09:04)
[2024-08-14] MEDS: enoxaparin 80 mg/0.8 mL Syringe 70 MG SUBCUT ×2 (10:33→20:46)
[2024-08-14 12:29] LABS: Glucose Point of Care 177 mg/dL (70-110)
[2024-08-14] MEDS: insulin lispro 100 unit/1 mL SUBCUT ×3 (12:48→20:50)
--- NOTE | 2024-08-14 15:53 | P.PN_ITS ---
Subjective 2 Subjective: Patient describes a 1-2 level of pain described as burning in the middle of her chest. Denies shortness of breath or nausea. Vitals/I&O/Wt Last Vital Signs Temp 98.4 F 08/14/24 12:00 Pulse 67 08/14/24 12:00 Resp 20 H 08/14/24 12:00 BP 133/73 08/14/24 12:00 Pulse Ox 95 08/14/24 12:00 O2 Del Method Room Air 08/14/24 12:00 08/14/24 08/14/24 08/14/24 06:59 14:59 22:59 Intake Total 1536 / 1536 Balance 1536 / 1536 Weight last 48 hrs Weight 71.894 kg Weight 54.3 kg Weight 54.3 kg Weight 69.536 kg Weight 72.575 kg Physical Exam 2 Narrative: Alert and oriented to person place time and situation no acute distress Heart regular systolic murmur heard best at the left upper sternal border Lungs diminished breath sounds diffusely with prolonged expiratory phase Abdomen soft nontender nondistended positive bowel sounds no hepatosplenomegaly Extremities no clubbing cyanosis or edema Data 08/14/24 03:27 08/14/24 03:27 A&P Assessment and plan (1) NSTEMI (non-ST elevated myocardial infarction): Aspirin Plavix statin Patient found to have coronary artery disease requiring bypass grafting. Discussed with Dr. Capellan and he discussed with cardiothoracic surgeon at [facility] who will accept patient for CABG. Patient continues to have mild chest pain and as such we will continue close observation and hospitalization monitoring for arrhythmias or other complications post [place] (2) Diabetes: Patient takes insulin and metformin at home I do not see a hemoglobin A1c since transfer will occur today or tomorrow will defer to accepting facility. 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 transplanted heart: y[place] dehe heart Associated angina: with unstable angina Qualified Code(s): I25.110 - Atherosclerotic heart disease of yocha dehe coronary artery with unstable angina pectoris (4) History of tobacco abuse: Was smoking up until admission but plans to quit. Extensive counseling to quit smoking due to the multiple health consequences. Discussed needing antidepressant after CABG and counseling to handle stress (5) Chest pain: Qualifiers: Chest pain type: chest pain due to myocardial ischemia Ischemic chest pain type: unstable angina pectoris Qualified Code(s): I20.0 - Unstable angina Attestations 2 Medical Necessity Statement*: Patient with non-STEMI and cath evidence of severe coronary artery disease requiring bypass grafting. Patient with continued chest pain despite aggressive therapy patient will remain hospitalized until transfer to [facility] who will perform bypass grafting. Coding Level of Care Code Acute Code for [facility] Fwd Diagnoses NSTEMI (non-ST elevated myocardial infarction) I21.4 Type 2 diabetes mellitus with other specified complication, unspecified whether halfway insulin use E11.69 Diabetes mellitus type: type 2 Diabetes mellitus halfway insulin use: unspecified buttermilk drier operator insulin use status Diabetes mellitus complication status: with other specified complication Coronary artery disease involving yocha dehe coronary artery of yocha dehe heart with unstable angina pectoris I25.110 Coronary Disease-Associated Artery/Lesion type: y[place] dehe artery [place] vs. transplanted heart: [place] dehe heart Associated angina: with unstable angina History of tobacco abuse Z87.891 Unstable angina pectoris I20.0 Chest pain type: chest pain due to myocardial ischemia Ischemic chest pain type: unstable angina pectoris
--- NOTE | 2024-08-14 16:22 | PM.PN ---
Documented by User: Bebe Montaño NP 08/14/24 16:41 Subjective Subjective: Lorna Urias is a very pleasant 59 year old female with a history of hypertension diabetes mellitus and long history of smoking who presented with ongoing recurrent chest pain. The serial EKGs showed dynamic ST changes in the anteroseptal leads with elevated troponins, NSTEMI. Currently patient is resting comfortably, minimal chest pain but has some discomfort to the area. No resting shortness of air. Her vitals are stable. Clinically no signs symptom suggestive of heart failure. Patient was here about a week ago with the different type of chest pain and at that time it felt pain was likely due to GERD with some element of pleurisy and she was treated appropriately. The echo done earlier this morning showed anteroseptal hypokinesis with reduced LV EF 50%. Medications: Reviewed: Yes Vitals/I&O/Wt Last Vital Signs Temp 98.4 F 08/14/24 12:00 Pulse 67 08/14/24 12:00 Resp 20 H 08/14/24 12:00 BP 133/73 08/14/24 12:00 Pulse Ox 95 08/14/24 12:00 O2 Del Method Room Air 08/14/24 12:00 08/14/24 08/14/24 08/14/24 06:59 14:59 22:59 Intake Total 1536 / 1536 Balance 1536 / 1536 Weight last 48 hrs Weight 158 lb 8 oz Weight 119 lb 11.376 oz Weight 119 lb 11.376 oz Weight 153 lb 4.8 oz Weight 160 lb Physical Exam Narrative: General: No apparent distress, healthy appearing, well nourished HENMT: normoceophalic Eye: PERRL Neck: No carotid bruit bilaterally Muskuloskeletal: Full ROM Lymphatic: no lymphedema noted Respiratory: Normal respiratory effort, clear to auscultation bilaterally throughout all lung owusu, no use of accessory muscles Cardio: No JVD, regular rate, regular rhythm, S1 S2 normal, no murmurs, peripheral pulses 2+ bilateral radial arteries Extremities: Full ROM, normal, normal capillary refill, no cyanosis or edema Neuro: Alert and oriented x4, no focal motor deficits Psych: Affect normal, denies suicidal ideation, mental status grossly normal Skin: Right wrist from heart cath site clean, dry, no swelling or s/s of hematoma/pseudoaneurysm Data 08/14/24 03:27 08/14/24 03:27 A&P Assessment and plan (1) NSTEMI (non-ST elevated myocardial infarction): Aspirin statin, heart cath showed severe 3 vessel disease Patient found to have coronary artery disease requiring bypass grafting. Dr. Nguyen discussed with patient and cardiothoracic surgeon at [facility] who will accept patient for CABG. (2) Diabetes: Per hospitalist Qualifiers: Diabetes mellitus complication status: with other specified complication Diabetes mellitus termite exterminator helper insulin use: unspecified termite exterminator helper insulin use status Diabetes mellitus type: type 2 Qualified Code(s): E11.69 - Type 2 diabetes mellitus with other specified complication (3) Coronary artery disease: As stated abive Qualifiers: Associated angina: with unstable angina Coronary Disease-Associated Artery/Lesion type: [place] artery [place] vs. transplanted heart: [place] heart Qualified Code(s): I25.110 - Atherosclerotic heart disease of [place] coronary artery with unstable angina pectoris (4) History of tobacco abuse: (5) Chest pain: Patient to be monitored, continue current care, this is more ofa twinge per patient, report worsening symptoms, has been going on for 1 month Qualifiers: Chest pain type: chest pain due to myocardial ischemia Ischemic chest pain type: unstable angina pectoris Qualified Code(s): I20.0 - Unstable angina Plan The plan was discussed with the patient the need for coronary artery bypass grafting. She does understand this and agrees for transfer to [facility] for evaluation and treatment for possible CABG Attestations Medical Necessity Statement*: Deferred to primary Coding Level of Care Code [facility] Diagnoses NSTEMI (non-ST elevated myocardial infarction) I21.4 Type 2 diabetes mellitus with other specified complication, unspecified whether mcfp insulin use E11.69 Diabetes mellitus complication status: with other specified complication Diabetes mellitus mcfp insulin use: unspecified termite exterminator helper insulin use status Diabetes mellitus type: type 2 Coronary artery disease involving [place] coronary artery of [place] heart with unstable angina pectoris I25.110 Associated angina: with unstable angina Coronary Disease-Associated Artery/Lesion type: [place] artery [place] vs. transplanted heart: [place] heart History of tobacco abuse Z87.891 Unstable angina pectoris I20.0 Chest pain type: chest pain due to myocardial ischemia Ischemic chest pain type: unstable angina pectoris Documented by User: Angella Larry MD 08/14/24 18:17 Data 08/14/24 03:27 08/14/24 03:27 A&P Assessment and plan (1) NSTEMI (non-ST elevated myocardial infarction): Aspirin statin, heart cath showed severe 3 vessel disease Patient found to have coronary artery disease requiring bypass grafting. Patient case was discussed with Dr. Sidney Baez cardiothoracic surgeon at [facility], who accepted the transfer of the patient. Patient will be awaiting transfer bed most likely by tomorrow hopefully she will obtain the bed for transfer for (2) Diabetes: Qualifiers: Diabetes mellitus complication status: with other specified complication Diabetes mellitus mcfp insulin use: unspecified termite exterminator helper insulin use status Diabetes mellitus type: type 2 Qualified Code(s): E11.69 - Type 2 diabetes mellitus with other specified complication (3) Coronary artery disease: Qualifiers: Associated angina: with unstable angina Coronary Disease-Associated Artery/Lesion type: [place] artery [place] vs. transplanted heart: [place] heart Qualified Code(s): I25.110 - Atherosclerotic heart disease of [place] coronary artery with unstable angina pectoris (4) History of tobacco abuse: (5) Chest pain: Qualifiers: Chest pain type: chest pain due to myocardial ischemia Ischemic chest pain type: unstable angina pectoris Qualified Code(s): I20.0 - Unstable angina Attestations Medical Necessity Statement*: Patient require continuation hospitalization as patient awaiting bed to transfer to the [facility] tomorrow. Coding Level of Care Code [facility] Diagnoses NSTEMI (non-ST elevated myocardial infarction) I21.4 Type 2 diabetes mellitus with other specified complication, unspecified whether termite exterminator helper insulin use E11.69 Diabetes mellitus complication status: with other specified complication Diabetes mellitus termite exterminator helper insulin use: unspecified termite exterminator helper insulin use status Diabetes mellitus type: type 2 Coronary artery disease involving [place] coronary artery of [place] heart with unstable angina pectoris I25.110 Associated angina: with unstable angina Coronary Disease-Associated Artery/Lesion type: [place] artery [place] vs. transplanted heart: [place] heart History of tobacco abuse Z87.891 Unstable angina pectoris I20.0 Chest pain type: chest pain due to myocardial ischemia Ischemic chest pain type: unstable angina pectoris
[2024-08-14 17:02] LABS: Glucose Point of Care 160 mg/dL (70-110)
[2024-08-14] MEDS: insulin glargine 100 units/1 mL 24 UNIT SUBCUT (20:51)
[2024-08-14 20:55] LABS: Glucose Point of Care 253 mg/dL (70-110)
[2024-08-15 04:00] VITALS: BP 126/75; PULSE 80; RESP 31; TEMP 36.9; O2SAT 100
[2024-08-15 05:51] VITALS: PULSE 65
[2024-08-15 06:38] LABS: Glucose Point of Care 145 mg/dL (70-110)
[2024-08-15 07:44] VITALS: BP 151/83; PULSE 67; RESP 21; TEMP 37.2; O2SAT 97
[2024-08-15] MEDS: atorvastatin 40 mg Tablet 80 MG PO (08:05)
[2024-08-15] MEDS: enoxaparin 80 mg/0.8 mL Syringe 70 MG SUBCUT (08:05)
[2024-08-15] MEDS: pantoprazole 40 mg SDV IVP (08:05)
[2024-08-15] MEDS: aspirin 81 mg EC Tablet PO (08:05)
[2024-08-15] MEDS: insulin lispro 100 unit/1 mL SUBCUT ×2 (08:06→13:34)
[2024-08-15 11:42] VITALS: BP 147/76; PULSE 89; RESP 24; TEMP 37.1; O2SAT 97
[2024-08-15 11:45] LABS: Glucose Point of Care 217 mg/dL (70-110)
[2024-08-15 12:00] VITALS: BP 147/76; PULSE 80; RESP 18; TEMP 36.7; O2SAT 97
--- NOTE | 2024-08-15 13:20 | PC.NURSE ---
1326 report called to alla appiah in [place] Talked to Sue Lyle RN and hand-off report discuss to her.
--- NOTE | 2024-08-15 13:39 | PM.DCS ---
Discharge Providers Date of Admission: 08/12/24 20:34 Date of Discharge: August 15, 2024 Attending Provider at Admission: Chris Fernández MD Attending Provider at Discharge: Roman Rivero DO Primary Care Provider: Vivian Granado Diagnoses at Discharge Discharge Diagnosis (1) NSTEMI (non-ST elevated myocardial infarction): Status: Acute (2) Diabetes: Status: Acute Qualifiers: Diabetes mellitus type: type 2 Diabetes mellitus correction insulin use: unspecified terminal press operator insulin use status Diabetes mellitus complication status: with other specified complication Qualified Code(s): E11.69 - Type 2 diabetes mellitus with other specified complication (3) Coronary artery disease: Status: Acute Qualifiers: Coronary Disease-Associated Artery/Lesion type: [place] artery [place] vs. transplanted heart: [place] heart Associated angina: with unstable angina Qualified Code(s): I25.110 - Atherosclerotic heart disease of [place] coronary artery with unstable angina pectoris (4) History of tobacco abuse: Status: Acute (5) Chest pain: Status: Acute Qualifiers: Chest pain type: chest pain due to myocardial ischemia Ischemic chest pain type: unstable angina pectoris Qualified Code(s): I20.0 - Unstable angina Reason for Visit Reason for Visit: CP n/ left arm pain Brief History: Lorna Urias is a 59 year old female who presents with chest pain starting August 05. She was seen in the emergency department by Dr. Parada, and thought to have pleurisy. She was started on prednisone taper 60 mg for 3 days 40 mg for 3 days 20 mg for 3 days then 10 mg for 3 days. She is currently on the 20 mg dose. She states it did not help her chest pain at all. Her chest pain is worse with activity but also with breathing and eating. She has a history of GERD and previously treated with Protonix which was changed to Pepcid due to nausea that developed after taking it for some time. She has CT looking for PE on 1021 showed COPD and coronary calcifications she has never had coronary artery disease or stroke. She tells me a stress test done 6 months ago for chest pain was okay. EKG today normal but troponin has risen in the last 7 days from 8.72 on the to 53 on presentation in the emergency department to 81 on repeat. Lipase also mildly elevated 87 Patient says she stopped smoking 4 days ago. She has never been on steroids prior to the . She is on inhalers prior to this Hospital Course Hospital Course Patient was admitted for non-STEMI. She was taken for cardiac angiogram which showed four-vessel disease and CABG was recommended. Arrangements were made for transfer to [facility] for CABG. Since patient continued to have mild chest pain maintained patient in the hospital until transfer could be attained. Per cardiology:Recommendations * Continue current medical management and risk factor modification. * 1-Return to [facility] for close monitoring and routine PCI care 2-Continue IV heparin drip as per ACS protocol 3-Hold Plavix for possible CABG 4-Statin with LDL goal of 70 mg/dl, aspirin 81 mg p.o. daily for life long 5-CT surgery consults for CABG 6-Optimal medical management for ME 7-Follow up with Dr. Larry in four weeks and establish care with primary care physician. Patient was counseled to quit smoking and she is adamantly agreeable. 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 echo complete* [id number] Routine Ultrasound 08/12/24 08:00 Completed Radiology Impressions Chest X-Ray 08/12/24 18:55 IMPRESSION: Left lower lobe atelectasis versus minimal infiltrate. Laboratory Results WBC 7.96 10^3/uL (3.29-11.43) 08/14/24 03:27 RBC 4.51 10^6/uL (3.85-5.65) 08/14/24 03:27 Hgb 13.50 g/dL (11.27-16.99) 08/14/24 03:27 Hct 41.4 % (36-47) 08/14/24 03:27 MCV 91.8 fl (85-98) 08/14/24 03:27 MCH 29.9 pg (27-33) 08/14/24 03:27 MCHC 32.6 g/dL (30-55) 08/14/24 03:27 RDW 12.4 % (12.1-15.1) 08/14/24 03:27 Plt Count 269 10^3/cmm (157-399) 08/14/24 03:27 MPV 8.6 fL (7.4-10.4) 08/14/24 03:27 Neut % (Auto) 46.5 % 08/14/24 03:27 Lymph % (Auto) 36.9 % 08/14/24 03:27 [place] % (Auto) 10.7 % 08/14/24 03:27 Eos % (Auto) 4.3 % 08/14/24 03:27 Baso % (Auto) 0.8 % 08/14/24 03:27 Neut # (Auto) 3.71 10^3/uL (1.8-7.7) 08/14/24 03:27 Lymph # (Auto) 2.9 10^3/uL (0.8-4.8) 08/14/24 03:27 [place] # (Auto) 0.9 10^3/uL (0.2-0.9) 08/14/24 03:27 Eos # (Auto) 0.3 10^3/uL (0.0-0.8) 08/14/24 03:27 Baso # (Auto) 0.1 10^3/uL (0.0-0.1) 08/14/24 03:27 Nucleated RBC % (auto) 0 % 08/14/24 03:27 Nucleated RBCs # 0.0 /100WBC 08/14/24 03:27 Sodium 140 mmol/L (136-145) 08/14/24 03:27 Potassium 3.9 mmol/L (3.5-5.1) 08/14/24 03:27 Chloride 109 mmol/L (98-107) H 08/14/24 03:27 Carbon Dioxide 23 mmol/L (22-29) 08/14/24 03:27 Anion Gap 11.9 (5-19) 08/14/24 03:27 BUN 13 mg/dL (6-20) 08/14/24 03:27 Creatinine 0.9 mg/dL (0.5-0.9) 08/14/24 03:27 GFR Calculation 64.1 mL/min (90-130) L 08/14/24 03:27 Glucose 161 mg/dL (65-115) H 08/14/24 03:27 POC Glucose 217 mg/dL (70-110) H 08/15/24 11:41 Calculated Osmolality 294 mOsm/kg (285-295) 08/14/24 03:27 Calcium 7.5 mg/dL (8.5-10.5) L 08/14/24 03:27 Magnesium 2.1 mg/dL (1.7-2.3) 08/13/24 02:12 Total Bilirubin 0.4 mg/dL (0.15-1.2) 08/13/24 02:12 AST 30 U/L (0-32) 08/13/24 02:12 ALT 33 U/L (0-33) 08/13/24 02:12 Alkaline Phosphatase 125 U/L (35-105) H 08/13/24 02:12 Troponin T Baseline 58 ng/L (0-10) H 08/12/24 19:29 Troponin T 120 Minute 81.33 ng/L (0-10) H 08/12/24 21:11 Delta Troponin T 23.33 ABS# (0-10) H* 08/12/24 21:11 Troponin T Hi Sens 6Hr 95.34 ng/L (0-10) H 08/13/24 02:12 Troponin T Hi Sens 6Hr Delta 37.34 ng/L (0-12) H* 08/13/24 02:12 Total Protein 6.4 g/dL (6.6-8.7) L 08/13/24 02:12 Albumin 3.8 g/dL (3.5-5.2) 08/13/24 02:12 Globulin 2.6 g/dL (1.3-4.6) 08/13/24 02:12 Triglycerides 838 mg/dL (0-150) H 08/13/24 02:12 Cholesterol 250 mg/dL (0-200) H 08/13/24 02:12 LDL Cholesterol Direct 128 mg/dL (0-100) H 08/13/24 02:12 LDL Cholesterol, Calc Not Reportable 08/13/24 02:12 HDL Cholesterol 27 mg/dL (60-100) L 08/13/24 02:12 LDL/HDL Ratio Not Reportable 08/13/24 02:12 Cholesterol/HDL Ratio 9.26 mg/dL (0.0-4.40) H 08/13/24 02:12 Lipase 95 U/L (13-60) H 08/13/24 02:12 Procedures Performed cardiac angiogram Conclusions 1. There is subtotal occlusion coronary artery disease with four vessel disease. 2. Normal left ventricular systolic function. Ejection fraction of 60%. Vitals Last Vital Signs Temp 98.0 F 08/15/24 12:00 Pulse 80 08/15/24 12:00 Resp 18 08/15/24 12:00 BP 147/76 08/15/24 12:00 Pulse Ox 97 08/15/24 12:00 O2 Del Method Room Air 08/15/24 12:00 Discharge Plan Discharge Patient Disposition: Xfer Short-Term Hosp Condition: Serious Prescriptions: No Action lisinopril 5 mg tablet 5 mg PO DAILY Qty: 30 2RF (DME) joseph balance brace or equivalent with orthopedic shoes See Rx Instructions .Route .MEDSUPPLY Qty: 1 0RF Rx Instructions: As directed by [facility] rosuvastatin 20 mg tablet 20 mg PO DAILY metformin 1,000 mg tablet 1,000 mg PO BID acetaminophen [Tylenol Extra Strength] 500 mg tablet 500 mg PO Q6H PRN (Reason: Pain, Mild) Januvia 100 mg tablet 100 mg PO DAILY hydrocodone-acetaminophen 5-325 mg tablet 1 tab PO Q8H PRN (Reason: pain) Qty: 14 0RF Rx Instructions: Take 1/2 to 1 tab every 8 hours as needed for pain prednisone 20 mg tablet 60 mg PO DAILY Qty: 20 0RF Rx Instructions: 3 tabs (60 mg) x 3 days. 2 tabs (40 mg) x 3 days. 1 tab (20 mg) x 3 days. 1/2 tab (10 mg) x 4 days ondansetron 4 mg tablet,disintegrating 4 mg PO Q8H PRN (Reason: nausea and vomiting) Qty: 10 0RF insulin glargine [Lantus U-100 Insulin] 100 unit/mL Solution 24 unit SUBCUT BEDTIME Discharge Orders: Transfer Out of Facility (Order); Ordered 08/14/24 Ordered By: Roman Rivero Referrals: Vivian Granado PA [Primary Care Provider] - 08/21/24 1:40 pm Discharge Diet: Cardiac Discharge Activity: Limit activity as instructed Discharge Attestations Time Spent in Discharge Care*: greater than 30 min Time Spent in Smoking Cessation: Extensively discussed tobacco cessation on 08/14/2024. Patient states that she plans to quit and has not had a cigarette since admission. That will be her stop date. Quality Metrics Clinical Quality Measures [ No reported AMI, CVA or VTE this stay] Coding Level of Care Code Acute Code for g Fwd Diagnoses NSTEMI (non-ST elevated myocardial infarction) I21.4 Type 2 diabetes mellitus with other specified complication, unspecified whether correction insulin use E11.69 Diabetes mellitus type: type 2 Diabetes mellitus terminal press operator insulin use: unspecified terminal press operator insulin use status Diabetes mellitus complication status: with other specified complication Coronary artery disease involving [place] coronary artery of [place] heart with unstable angina pectoris I25.110 Coronary Disease-Associated Artery/Lesion type: [place] artery [place] vs. transplanted heart: [place] heart Associated angina: with unstable angina History of tobacco abuse Z87.891 Unstable angina pectoris I20.0 Chest pain type: chest pain due to myocardial ischemia Ischemic chest pain type: unstable angina pectoris
--- NOTE | 2024-08-15 14:00 | PC.NURSE ---
transport [facility] is here around 2 pm to bring pt to [place].
== END 2024-08-15 14:00 | disposition short-term general hospital (02) ==
LOC: ER 21:19 → CSU 21:19
PROVIDERS: Internal Medicine Cardiovascular Disease; Student in an Organized Health Care Education/Training Program; Admitting Provider Internal Medicine; Emergency Provider Emergency Medicine; PCP Physician Assistant; Visit Provider Internal Medicine
DX: I21.4 Non-ST elevation (NSTEMI) myocardial infarction (principal); I25.10 Atherosclerotic heart disease of native coronary artery without angina pectoris; I10 Essential (primary) hypertension; E11.9 Type 2 diabetes mellitus without complications; E87.1 Hypo-osmolality and hyponatremia; J44.9 Chronic obstructive pulmonary disease, unspecified; E78.5 Hyperlipidemia, unspecified; Z79.84 Long term (current) use of oral hypoglycemic drugs; K21.9 Gastro-esophageal reflux disease without esophagitis; Z79.4 Long term (current) use of insulin; F17.210 Nicotine dependence, cigarettes, uncomplicated
CPT/HCPCS: 12345; 36415; 36416; 71045; 80048; 80053; 80061; 82962; 83690; 83721; 83735; 84484; 85025; 93005; 93306; 93458; 96372; 96374; 96375; 96376; 99152; 99153; 99285; C1769; C1887; C1894; G0378; J1200; J1644; J1650; J1815; J2250; J2270; J2405; J2470; J3010; J3490; J7030; Q9967

== ENCOUNTER 2024-08-24 10:03 | Emergency (ER) | payer MEDICARE, MEDICAID, SELFPAY ==
[2024-08-24] VITALS (44 sets, daily range): BP systolic 120–160; BP diastolic 81–99; PULSE 75–88; RESP 10–43; TEMP 36.7; O2SAT 90–94; BMI 27.4
--- NOTE | 2024-08-24 10:34 | XRR_ITS ---
PROCEDURE INFORMATION: Exam: XR Chest Exam date and time: 08/24/2024 10:46 AM Age: 59 years old Clinical indication: Other: S/P cabg; Prior surgery; Surgery date: 3-7 days post-operative; Surgery type: Cabg 08/18/24; Patient HX: PT arrives via [facility] from home C/O n/v and dizziness that started today when she woke up. PT given 4mg zofran en route. PT had a triple bypass done at [facility] in [place] on 08/18/24. PT denies any issues since the procedure. Denies chest pain or SOB at this time. PT is a&o at this time with patent airway and even respirations. TECHNIQUE: Imaging protocol: Radiologic exam of the chest. Views: 1 view. COMPARISON: CR (CHEST, ) 08/12/2024 7:06 PM FINDINGS: Lungs: There is atelectasis at the lung bases. Pleural spaces: Small pleural effusions suspected at the lung bases. Heart/Mediastinum: The heart is enlarged. Sternal wires are present from prior cardiac surgery. Bones/joints: Unremarkable. XR/XR chest 1V portable [id number] IMPRESSION: 1. Small pleural effusions and atelectasis suspected at the lung bases. 2. Cardiomegaly.
--- NOTE | 2024-08-24 10:35 | ECG_ITS ---
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 Measurements Intervals [place] Rate: 80 P: 44 ID: [id number] QRS: 45 QRSD: 88 T: 72 QT: 405 QTc: 467 Interpretive Statements SINUS RHYTHM Compared to ECG 08/13/2024 02:37:50 Left ventricular hypertrophy no longer present ST (T wave) deviation no longer present Myocardial infarct finding no longer present Electronically Signed On 08-24-2024 14:00:44 MINI BACCARAT DEALER by Noelle Anaya M.D. [email or web address]
--- NOTE | 2024-08-24 10:36 | ED_ITS ---
HPI - Dizziness 2 General: Chief Complaint: Nausea/Vomiting/Diarrhea Stated Complaint: nausea; dizzy Time Seen by Provider: 08/24/24 10:12 Source: patient and family Mode of arrival: EMS Limitations: no limitations History of Present Illness: HPI Narrative: This patient comes to the emergency department via EMS from her home. She states that she got up and went to the bathroom this morning and then returned back to her bed. She states a short while later within of just a minute or so she had an episode of dizziness and vertigo. She states that was associated with nausea and extreme anxiety as she did not want to vomit. She is status post coronary artery bypass done at [facility] by Dr. Declan Villagran on last Sunday. She states she had an unremarkable postoperative course and was discharged on Sunday. She states that she feels much better now. She states a lot of her symptoms are related to her feeling of dread and being out of control when she had her episode of vertigo. She states she has had rare vertigo in the past. She denies any tenderness. She denies any recent respiratory infection. She states that as long as she is quiet she feels better. She denies any associated difficulty with speech focal numbness weakness etc. MD elicited complaint: vertigo Timing: sudden onset Severity: moderate Description: room spinning History of similar symptoms: Yes Associated symptoms: Reports nausea; Denies chills, headache(s), nasal congestion, palpitations, syncope or vomiting Associated neuro symptoms: Deny numbness in extremities Related Data Home Medications Medication Instructions Recorded Confirmed acetaminophen 500 mg tablet 500 mg PO Q6H PRN Pain, Mild 06/08/22 08/24/24 (Tylenol Extra Strength) metformin 1,000 mg tablet 1,000 mg PO BID 06/08/22 08/24/24 rosuvastatin 20 mg tablet 20 mg PO DAILY 06/08/22 08/24/24 sitagliptin phosphate 100 mg 100 mg PO DAILY 03/20/23 08/24/24 tablet (Januvia) insulin glargine 100 unit/mL 24 unit SUBCUT BEDTIME 08/12/24 08/24/24 subcutaneous solution (Lantus U-100 Insulin) aspirin 81 mg tablet,delayed 81 mg PO DAILY 08/24/24 08/24/24 release (Frank Low Dose Aspirin) atorvastatin 80 mg tablet 80 mg PO DAILY 08/24/24 08/24/24 blood sugar diagnostic (OneTouch 08/24/24 08/24/24 Ultra Test strips) famotidine 40 mg tablet 40 mg PO DAILY 08/24/24 08/24/24 hydroxyzine HCl 25 mg tablet 25 mg PO QID PRN anxiety 08/24/24 08/24/24 metoprolol succinate 25 mg 25 mg PO DAILY 08/24/24 08/24/24 tablet,extended release 24 hr semaglutide 0.25 mg or 0.5 mg (2 0.25 mg SUBCUT DAILY 08/24/24 08/24/24 mg/3 mL) subcutaneous pen injector (CXOWARE) Previous Rx's Medication Instructions Recorded lisinopril 5 mg tablet 5 mg PO DAILY #30 tabs 07/26/20 joseph balance brace or equivalent #1 ea 05/02/22 with orthopedic shoes hydrocodone 5 mg-acetaminophen 325 1 tab PO Q8H PRN pain #14 tabs 08/05/24 mg tablet ondansetron 4 mg disintegrating 4 mg PO Q8H PRN nausea and 08/05/24 tablet vomiting #10 tabs Allergies Allergy/AdvReac Type Severity Reaction Status Date / Time No Known Allergies Allergy Verified 08/24/24 10:17 Review of Systems 2 Const: Denies: fever(s) or chills Eyes: Denies: change in vision ENMT: Denies: throat pain, odynophagia, nasal discharge or nasal congestion Card: Denies: palpitations, irregular heart rhythm, syncope or pre-syncope Resp: Denies: dyspnea, productive cough or non-productive cough GI: Reports: nausea; Denies: abdominal pain, vomiting or diarrhea : Denies: flank pain, difficulty voiding, dysuria or urinary frequency Musc: Denies: neck pain, back pain, extremity pain or extremity swelling Skin/Breast: Denies: rash or pruritus Neuro: Denies: headache(s), numbness in extremities or weakness in extremities PFSH ED 2 PFSH: Medical History History of tobacco abuse Diabetes GERD (gastroesophageal reflux disease) Hyperlipidemia Social History Smoking and tobacco/nicotine status: current every day tobacco/nicotine user cigarettes Packs smoked per day: 0.5 Alcohol intake: never Substance/Drug Use: never Physical Exam 2 Narrative: EXAM NARRATIVE: Patient is very comfortable makes good eye contact speech is goal-directed. Const: COMMON NORMALS: no acute distress, average body habitus, patient oriented x3 and alert GENERAL APPEARANCE: cooperative and comfortable HENMT: COMMON NORMALS: normocephalic, EAC's normal, TM's normal bilaterally, Normal nasal mucous membranes and turbinates present, moist oral mucous membranes and oropharynx normal HEAD & SCALP: normocephalic NOSE: Normal nasal mucous membranes and turbinates present EXTERNAL AUDITORY CANAL: EAC's normal TYMPANIC MEMBRANE: TM's normal bilaterally Eye: COMMON NORMALS: Equal, round and reactive pupils present, EOMs intact bilaterally and conjunctivae normal CONJUNCTIVA: Yes conjunctivae normal P UPIL: Yes Equal, round and reactive pupils present OTHER: No nystagmus noted Neck/C-Spine: COMMON NORMALS: full ROM, supple, no JVD and No carotid bruits Chest: OTHER: She has a surgical dressing over the midline sternotomy scar Resp: COMMON NORMALS: normal respiratory effort, No retractions, No use of accessory muscles and clear to auscultation bilaterally AUSCULTATION: clear to auscultation bilaterally Cardio: COMMON NORMALS: no JVD, regular rate, regular rhythm, No murmurs present (Cardio) and Peripheral pulses 2+ throughout RATE: regular rate R HYTHM: regular rhythm PERIPHERAL PULSES: Peripheral pulses 2+ throughout GI: COMMON NORMALS: Normal to inspection, nondistended, normoactive bowel sounds present, Soft to palpation, non-tender and No hepatosplenomegaly present PALPATION: Yes Soft to palpation and Yes No hepatosplenomegaly present : COMMON NORMALS: Yes no CVA tenderness BLADDER/KIDNEY EXAM: Yes no CVA tenderness Back/Pelvis: COMMON NORMALS: no CVA tenderness, no thoracic nor lumbar tenderness and thoraco-lumbar ROM normal Extremity: COMMON NORMALS: normal to inspection, full ROM, no calf tenderness and no pedal edema Neuro: COMMON NORMALS: patient oriented x3, moves all extremities, no focal motor deficits and no sensory deficits noted SENSORIUM/ORIENTATION: Yes alert CRANIAL NERVES: Yes CN normal except as noted COORDINATION/BALANCE: f [id number] test normal and [id number] test normal GAIT: Yes Normal gait present and Yes Assistive device used walker COORDINATION: [id number] test normal and [id number] test normal Psych: COMMON NORMALS: mental status grossly normal Skin: COMMON NORMALS: no rashes or lesions noted and turgor normal GENERAL SKIN EXAM: no rashes or lesions noted and turgor normal Course 2 Reevaluation(s): Reevaluation #1: Patient remained stable. She was able to get up and ambulate with the use of a walker throughout the emergency department in a limited fashion which she did without any difficulty and had no symptoms of vertigo or other constitutional symptoms. Time: 13:19 Vital Signs: Vital signs: Vital Signs Temperature 98.0 F 08/24/24 10:06 Pulse Rate 79 08/24/24 13:10 Respiratory Rate 31 H 08/24/24 13:10 Blood Pressure 139/81 08/24/24 13:10 Pulse Oximetry 92 08/24/24 13:10 Oxygen Delivery Me thod Room Air 08/24/24 12:05 MDM - Dizziness Medical Decision Making Patient with presentation as noted in HPI. Initial findings suggestive probable peripheral vertigo as etiology of her presentation with associated nausea and then anxiety related to possible concern about vomiting status post CABG. patient was monitored in the emergency department she did not display any dysrhythmia or any other concerning findings on awake overnight monitor. Resting EKG was pristine without any evidence of ischemia. Labs and imaging were also reassuring. The patient was observed and did not display any additional findings of vertigo or any other focal findings that would necessitate additional imaging. Likely this patient suffered a brief episode of vertigo due to her labyrinthine dysfunction. Likely due to her being in the hospital in a semirecumbent or reclined state for several days and now starting to get back to ambulation. Again no evidence of a this time to suggest additional workup indicated but we also reviewed symptoms that would necessitate an additional evaluation. She voiced understanding and is stable to be discharged at this time. Lab Data I reviewed the patient's lab results. 08/24/24 09:30 08/24/24 09:30 Radiology Impressions Chest X-Ray 08/24/24 10:34 IMPRESSION: 1. Small pleural effusions and atelectasis suspected at the lung bases. 2. Cardiomegaly. Laboratory Results WBC 7.87 10^3/uL (3.29-11.43) 08/24/24 09:30 RBC 3.81 10^6/uL (3.85-5.65) L 08/24/24 09:30 Hgb 11.50 g/dL (11.27-16.99) 08/24/24 09:30 Hct 35.3 % (36-47) L 08/24/24 09:30 MCV 92.7 fl (85-98) 08/24/24 09:30 MCH 30.2 pg (27-33) 08/24/24 09:30 MCHC 32.6 g/dL (30-55) 08/24/24 09:30 RDW 13.2 % (12.1-15.1) 08/24/24 09:30 Plt Count 399 10^3/cmm (157-399) 08/24/24 09:30 MPV 8.7 fL (7.4-10.4) 08/24/24 09:30 Neut % (Auto) 62.6 % 08/24/24 09:30 Lymph % (Auto) 18.8 % 08/24/24 09:30 Barbour % (Auto) 9.9 % 08/24/24 09:30 Eos % (Auto) 7.2 % 08/24/24 09:30 Baso % (Auto) 0.4 % 08/24/24 09:30 Neut # (Auto) 4.92 10^3/uL (1.8-7.7) 08/24/24 09:30 Lymph # (Auto) 1.5 10^3/uL (0.8-4.8) 08/24/24 09:30 Barbour # (Auto) 0.8 10^3/uL (0.2-0.9) 08/24/24 09:30 Eos # (Auto) 0.6 10^3/uL (0.0-0.8) 08/24/24 09:30 Baso # (Auto) 0.0 10^3/uL (0.0-0.1) 08/24/24 09:30 Nucleated RBC % (auto) 0 % 08/24/24 09:30 Nucleated RBCs # 0.0 /100WBC 08/24/24 09:30 Sodium 138 mmol/L (136-145) 08/24/24 09:30 Potassium 4.0 mmol/L (3.5-5.1) 08/24/24 09:30 Chloride 101 mmol/L (98-107) 08/24/24 09:30 Carbon Dioxide 25 mmol/L (22-29) 08/24/24 09:30 Anion Gap 16.0 (5-19) 08/24/24 09:30 BUN 7 mg/dL (6-20) 08/24/24 09:30 Creatinine 0.5 mg/dL (0.5-0.9) 08/24/24 09:30 GFR Calculation 126.3 mL/min (90-130) 08/24/24 09:30 Glucose 153 mg/dL (65-115) H 08/24/24 09:30 Calculated Osmolality 287 mOsm/kg (285-295) 08/24/24 09:30 Calcium 8.4 mg/dL (8.5-10.5) L 08/24/24 09:30 Magnesium 1.8 mg/dL (1.7-2.3) 08/24/24 09:30 All radiology interpretation(s) finalized by discharge EKG Data EKG 1: I personally reviewed and interpreted this EKG as follows: Interpretation: Resting EKG reveals a ventricular rate of 80 bpm. Normal VT interval, QRS duration, corrected QT interval. Normal axis. No acute ST-T wave changes noted. Discharge Plan Discharge Patient Disposition: Home Clinical Impression: Labyrinthine dysfunction, Status post three vessel coronary artery bypass Condition: Stable Prescriptions: No Action lisinopril 5 mg tablet 5 mg PO DAILY Qty: 30 2RF (DME) joseph balance brace or equivalent with orthopedic shoes See Rx Instructions .Route .MEDSUPPLY Qty: 1 0RF Rx Instructions: As directed by [employer] rosuvastatin 20 mg tablet 20 mg PO DAILY metformin 1,000 mg tablet 1,000 mg PO BID acetaminophen [Tylenol Extra Strength] 500 mg tablet 500 mg PO Q6H PRN (Reason: Pain, Mild) Januvia 100 mg tablet 100 mg PO DAILY hydrocodone-acetaminophen 5-325 mg tablet 1 tab PO Q8H PRN (Reason: pain) Qty: 14 0RF Rx Instructions: Take 1/2 to 1 tab every 8 hours as needed for pain ondansetron 4 mg tablet,disintegrating 4 mg PO Q8H PRN (Reason: nausea and vomiting) Qty: 10 0RF insulin glargine [Lantus U-100 Insulin] 100 unit/mL Solution 24 unit SUBCUT BEDTIME atorvastatin 80 mg tablet 80 mg PO DAILY famotidine 40 mg tablet 40 mg PO DAILY (DME) OneTouch Ultra Test Strip MISCELLANEOUS aspirin [Frank Low Dose Aspirin] 81 mg Tablet,Delayed Release (Dr/Ec) 81 mg PO DAILY hydroxyzine HCl 25 mg Tablet 25 mg PO QID PRN (Reason: anxiety ) metoprolol succinate 25 mg tablet extended release 24 hr 25 mg PO DAILY Ozempic 0.25 mg or 0.5 mg (2 mg/3 mL) pen injector 0.25 mg SUBCUT DAILY Discharge Orders: Discharge ED (Routine); Ordered 08/24/24 Ordered By: John Thompson Referrals: Vivian Granado PA [Primary Care Provider] - Discharge Diet: Usual diet Discharge Activity: Increase activity as tolerated and Use walker/crutches as instructed Patient Instructions: Opioid Safety, Pain Management Activity Restrictions/Additional Instructions: As we reviewed while you are in the emergency department there is no evidence of anemia, dehydration, heart rhythm issues or other concerning findings today that contributed to your episode of dizziness. This is likely due to a brief episode of middle ear dysfunction which controls your balance. If this reoccurs or you develop other associated symptoms such as headache, difficulty with speech, difficulty with vision, difficulty with movement or sensation return to this or the nearest emergency department immediately. Otherwise follow-up with cardiovascular surgery as scheduled. Continue all your usual medications. Coding Level of Care Code ED Workforce Staffing Advisor for Bridgette Graham
[2024-08-24 10:41] LABS: Basophils % 0.4 %; Eosinophils # 0.6 10^3/uL (0.0-0.8); Eosinophils % 7.2 %; Hematocrit 35.3 % (36-47); Lymphocytes # 1.5 10^3/uL (0.8-4.8); Lymphocytes % 18.8 %; Mean Corpuscular HGB Conc 32.6 g/dL (30-55); Mean Corpuscular Hemoglobin 30.2 pg (27-33); Mean Corpuscular Volume 92.7 fl (85-98); Mean Platelet Volume 8.7 fL (7.4-10.4); Monocytes # 0.8 10^3/uL (0.2-0.9); Monocytes % 9.9 %; Neutrophils # 4.92 10^3/uL (1.8-7.7); Neutrophils % 62.6 %; Nucleated Red Blood Cells % 0 %; Platelet Count 399 10^3/cmm (157-399); Red Blood Count 3.81 10^6/uL (3.85-5.65); Red Cell Distribution Width 13.2 % (12.1-15.1); White Blood Count 7.87 10^3/uL (3.29-11.43)
[2024-08-24 10:56] LABS: Blood Urea Nitrogen 7 mg/dL (6-20); Calcium 8.4 mg/dL (8.5-10.5); Carbon Dioxide 25 mmol/L (22-29); Chloride 101 mmol/L (98-107); Creatinine Clr Calc Pharmacy 113.9139; Glomerular Filtration Rate 126.3 mL/min (90-130); Glucose 153 mg/dL (65-115); Magnesium 1.8 mg/dL (1.7-2.3); Osmolality Calculated 287 mOsm/kg (285-295); Sodium 138 mmol/L (136-145)
--- NOTE | 2024-08-24 11:23 | PC.PHAR ---
Patient states has only taken insulin yesterday and no other home meds in over a week since being sick .
== END 2024-08-24 13:55 | disposition home or self-care (01) ==
PROVIDERS: Emergency Provider Emergency Medicine; PCP Physician Assistant
DX: H83.2X9 Labyrinthine dysfunction, unspecified ear (principal); Z98.890 Other specified postprocedural states; Z79.84 Long term (current) use of oral hypoglycemic drugs; Z79.4 Long term (current) use of insulin; Z79.82 Long term (current) use of aspirin; F17.210 Nicotine dependence, cigarettes, uncomplicated; E11.9 Type 2 diabetes mellitus without complications; E78.5 Hyperlipidemia, unspecified
CPT/HCPCS: 71045; 80048; 83735; 85025; 93005; 99285

== ENCOUNTER → 2024-09-08 08:18 | Outpatient (BNVA) | payer MEDICARE, MEDICAID, SELFPAY | PROVIDERS: PCP Physician Assistant; Visit Provider Nurse Practitioner Family | DX: I25.10 Atherosclerotic heart disease of native coronary artery without angina pectoris (principal); Z95.1 Presence of aortocoronary bypass graft; R05.8 Other specified cough; Z87.891 Personal history of nicotine dependence | CPT/HCPCS: 99214 ==

== ENCOUNTER → 2024-12-09 15:25 | Outpatient (BNVA) | payer MEDICARE, MEDICAID, SELFPAY | PROVIDERS: PCP Physician Assistant; Visit Provider Internal Medicine Cardiovascular Disease | DX: I25.10 Atherosclerotic heart disease of native coronary artery without angina pectoris (principal); Z95.1 Presence of aortocoronary bypass graft; E11.9 Type 2 diabetes mellitus without complications; Z79.4 Long term (current) use of insulin | CPT/HCPCS: 99214 ==

== ENCOUNTER → 2024-12-31 08:24 | Outpatient (BNVA) | payer MEDICARE, MEDICAID, SELFPAY | PROVIDERS: PCP Physician Assistant; Visit Provider Internal Medicine | DX: E11.9 Type 2 diabetes mellitus without complications (principal); E78.5 Hyperlipidemia, unspecified; I25.110 Atherosclerotic heart disease of native coronary artery with unstable angina pectoris | CPT/HCPCS: 99204 ==

== ENCOUNTER 2025-01-22 09:28 | Outpatient (CLI) | payer MEDICARE, MEDICAID, SELFPAY ==
--- NOTE | 2025-01-22 09:31 | CT_ITS ---
WS: [id number] LDCT LUNG CANCER SCREENING TECHNIQUE: Noncontrast CT of the chest with coronal and sagittal reformatted images. CLINICAL INFORMATION: HX OF TOBACCO USE COMPARISON: 01/27/2022 and CTA 2023 DLP: 69.22 mGy.cm DIvol: Mean CTDIvol: 1.50 (mGy) All CT scans at [facility] use at least one of these dose optimization techniques: automated exposure control; mA and/or kV adjustment per patient size (includes targeted exams where dose is matched to clinical indication); or iterative reconstruction. FINDINGS: Previously described subcentimeter pulmonary nodules are stable. 8 mm RIGHT upper lobe pulmonary nodule. 6 mm RIGHT lower lobe nodule with irregular margins has increased since 2021 and increased slightly since 2023. Small neoplasm not excluded. Recommend 6-month follow-up. No new pulmonary parenchymal abnormalities. Hepatomegaly. Cholecystectomy. No mediastinal or hilar lymphadenopathy. LEFT adrenal mass is stable. Sternotomy. CABG. Mild thoracic curve CT/CT lung screening [id number] IMPRESSION: Slowly increasing 6 mm RIGHT lower lobe nodule with irregular leobardo ns has increased since 2021 and increased slightly since 2023. Small neoplasm n ot excluded. Recommend 3-month follow-up. LUNG-RADS: 4A-Probably Suspicious FOLLOW UP: 3 Month LDCT
== END 2025-01-22 09:29 | disposition home or self-care (01) ==
LOC: RAD 09:29
PROVIDERS: PCP Physician Assistant; Visit Provider Physician Assistant
DX: Z12.2 Encounter for screening for malignant neoplasm of respiratory organs (principal); Z87.891 Personal history of nicotine dependence; R91.8 Other nonspecific abnormal finding of lung field; R16.0 Hepatomegaly, not elsewhere classified; Z90.49 Acquired absence of other specified parts of digestive tract; R93.89 Abnormal findings on diagnostic imaging of other specified body structures; Z98.890 Other specified postprocedural states; M43.8X4 Other specified deforming dorsopathies, thoracic region
CPT/HCPCS: 71271

== ENCOUNTER 2025-03-31 07:28 | Outpatient (CLI) | payer OTHER, MEDICAID, SELFPAY ==
--- NOTE | 2025-03-31 07:30 | CT_ITS ---
WS: [id number] CT chest w con* [id number] HISTORY: LUNG NODULE TECHNIQUE: Axial imaging performed through the thorax. Coronal and sagittal reformats are submitted. All CT scans at [facility] use at least one of these dose optimization techniques: automated exposure control; mA and/or kV adjustment per patient size (includes targeted exams where dose is matched to clinical indication); or iterative reconstruction. CONTRAST: Omnipaque 350; 100 mL IV. DLP: 375.51 mGy.cm COMPARISON: 01/22/2025, 08/05/2024, 07/07/2022 Lungs and central airway: Pulmonary hyperexpansion. RIGHT upper lobe well- circumscribed slightly lobulated nodule measures 7 mm. Similar to prior studies dating back to 07/07/2022. Slightly spiculated nodule in the RIGHT lower lobe is reidentified without increase in size since 01/22/2025. This nodule has slowly increased in size since 2021. No additional pulmonary mass or nodule. No pneumonia. Pleura: Normal. No pleural effusion. Heart and pericardium: Prior CABG Heart is normal size. Mediastinum and bibi: No mediastinum or hilar adenopathy. Vessels: Mild atherosclerosis aorta. Normal size pulmonary artery and aorta. Chest wall and lower neck: No soft tissue masses. Upper abdomen: Long-term stability LEFT adrenal well-circumscribed mass measuring 2.5 x 3.1 cm. Mass was present on 04/21/2014 with minimal increase in size. Mild hepatic steatosis. Prior cholecystectomy. Osseous structures: Mild increase in thoracic kyphosis. CT/CT chest w con* [id number] IMPRESSION: 1. No increase in size of the slightly spiculated nodule RIGHT lower lobe ron uring 7 mm. No change since 01/22/2025. Nodule has increased in size and become more apparent as compared to 07/07/2022. Recommend continued serial chest CT fol low-up as neoplasm is not excluded. PET/CT may not be sensitive due to the smal l size of the nodule. Recommend follow-up chest CT in 6 months. 2. No change well-circumscribed 7 mm nodule RIGHT upper lobe. 3. Stable LEFT adrenal mass. 4. Prior cholecystectomy.
[2025-03-31] MEDS: iohexol 350 mg/mL 500 mL Btl (per mL) IV (07:43)
== END 2025-03-31 07:29 | disposition home or self-care (01) ==
PROVIDERS: PCP Physician Assistant; Visit Provider Physician Assistant
DX: R91.8 Other nonspecific abnormal finding of lung field (principal); E27.8 Other specified disorders of adrenal gland; Z90.49 Acquired absence of other specified parts of digestive tract; Z98.890 Other specified postprocedural states; I70.0 Atherosclerosis of aorta; K76.0 Fatty (change of) liver, not elsewhere classified; M40.294 Other kyphosis, thoracic region
CPT/HCPCS: 71260

== ENCOUNTER → 2025-04-01 09:16 | Outpatient (BNVA) | payer OTHER, MEDICAID, SELFPAY | PROVIDERS: PCP Physician Assistant; Visit Provider Internal Medicine | DX: E11.9 Type 2 diabetes mellitus without complications (principal); E78.5 Hyperlipidemia, unspecified; I25.110 Atherosclerotic heart disease of native coronary artery with unstable angina pectoris | CPT/HCPCS: 99214 ==

== ENCOUNTER → 2025-07-08 09:32 | Outpatient (BNVA) | payer OTHER, MEDICAID, SELFPAY | PROVIDERS: PCP Physician Assistant; Visit Provider Internal Medicine | DX: E11.9 Type 2 diabetes mellitus without complications (principal); E78.5 Hyperlipidemia, unspecified; I25.110 Atherosclerotic heart disease of native coronary artery with unstable angina pectoris; Z79.85 Long-term (current) use of injectable non-insulin antidiabetic drugs | CPT/HCPCS: 99214 ==

== ENCOUNTER 2025-09-21 14:26 | Outpatient (CLI) | payer MEDICARE, MEDICAID, SELFPAY ==
--- NOTE | 2025-09-21 14:31 | CT_ITS ---
WS: [id number] CT chest w con* [id number] HISTORY: SOLITARY LUNG NODULE TECHNIQUE: Axial imaging performed through the thorax. Coronal and sagittal reformats are submitted. All CT scans at [facility] use at least one of these dose optimization techniques: automated exposure control; mA and/or kV adjustment per patient size (includes targeted exams where dose is matched to clinical indication); or iterative reconstruction. CONTRAST: Omnipaque 350; 100 mL IV. DLP: 388.79 mGy.cm COMPARISON: 03/31/2025, 01/22/2025, 12/14/2023 and 01/27/2022 Lungs and central airway: Lungs are hyperinflated. Reidentified is a slightly lobulated soft tissue nodule measuring 8.7 mm in the RIGHT upper lobe. Subsolid nodule RIGHT lower lobe is reidentified with a maximum diameter of 6.3 mm. No new mass or nodule. Nodules have remained stable for several years. Slight increase in size between studies is probably due to slice selection. No new mass. Pleura: Normal. No pleural effusion. Heart and pericardium: Normal size heart with no pericardial effusion. Mediastinum and bibi: No mediastinum or hilar adenopathy. Vessels: Mild atherosclerosis aorta. Normal size pulmonary artery. Chest wall and lower neck: Prior CABG. Upper abdomen: Low-attenuation within the liver from hepatic steatosis. Well- circumscribed low-attenuation LEFT adrenal mass measures 2.5 x 3.2 cm and has been previously described. Prior cholecystectomy. Osseous structures: No destructive process. CT/CT chest w con* [id number] IMPRESSION: 1. RIGHT upper and RIGHT lower lobe subcentimeter nodules have remained stable over several prior years. Slight variability in measurement is probably due to slice selection and volume averaging. Recommend return to annual low-dose lung screening CT. 2. Chronic emphysema. 3. Stable LEFT adrenal mass, consistent with an adenoma. 4. Hepatic steatosis.
[2025-09-21 15:05] LABS: Blood Urea Nitrogen 12 mg/dL (8-23)
[2025-09-21] MEDS: iohexol 350 mg/mL 500 mL Btl (per mL) IV (15:35)
== END 2025-09-21 14:27 | disposition home or self-care (01) ==
LOC: RAD 14:27
PROVIDERS: PCP Physician Assistant; Visit Provider Physician Assistant
DX: R91.1 Solitary pulmonary nodule (principal); Z90.49 Acquired absence of other specified parts of digestive tract; R91.8 Other nonspecific abnormal finding of lung field; J43.8 Other emphysema; K76.0 Fatty (change of) liver, not elsewhere classified; E27.8 Other specified disorders of adrenal gland
CPT/HCPCS: 71260; 82565; 84520